=== PATIENT | female | born 1985 | race Caucasian/White ===

== ENCOUNTER 2016-04-07 12:29 | Outpatient (CLI) | payer MEDICAID ==
[2016-04-07 13:40] LABS: APPEARANCE,URINE SLIGHTLY-CLOUDY; BILIRUBIN,URINE NEGATIVE (NEGATIVE); GLUCOSE, URINE NEGATIVE (NEGATIVE); KETONES,URINE NEGATIVE (NEGATIVE); LEUKOCYTE ESTERASE,URINE NEGATIVE (NEGATIVE); NITRITE,URINE NEGATIVE (NEGATIVE); PROTEIN,URINE NEGATIVE (NEGATIVE); URINE SPECIFIC GRAVITY 1.025; UROBILINOGEN,URINE NEGATIVE mg/dL (<2.0)
[2016-04-07 13:54] LABS: URINE BARBITURATES SCREEN NEGATIVE; URINE METHADONE SCREEN NEGATIVE; URINE PHENCYCLIDINE SCREEN NEGATIVE
--- NOTE | 2016-04-07 14:16 | Non Stress Test Report ---
Non Stress Test Datetime Report Generated by CPN: 04/07/2016 14:15 DEMOGRAPHIC Test Number: 1 EGA NST: 34.6 INDICATION Indication for Study: Ordered by Provider MONITORING Monitor Explained: Monitor Explained; Test Explained; Patient Verbalized Understanding Time on Monitor: 04/07/2016 12:52 Time off Monitor: 04/07/2016 14:03 NST Duration: 71 NST INTERVENTIONS NST Interventions: PO Hydration; Reposition Patient Physician Notified NST: Dr. Diaz BABY A: [id number] BABY A Movement : Present Contraction Frequency : Irritability FHR Baseline : 135 Accelerations : 15X15 Decelerations : None Variability : Moderate 6-25bpm NST Review: Meets Criteria for Reactive NST NST Review and Verified By : Leonarda Camp RNC NST Results: Reactive NST REPORT Report Trigger: Send Report
--- NOTE | 2016-04-12 09:59 | Antepartum Discharge Summary ---
Antepartum DC Datetime Report Generated by CPN: 04/12/2016 09:59 DIET/ACTIVITY/RESTRICTIONS Diet: Regular (04/07/2016 14:09:Sruthi Vitrano, RN) Activity: Normal Activity (04/07/2016 14:09:Sruthi Vitrano, RN) TEACHING/INSTRUCTIONS/REFERRALS Instructions Given To: Patient, Support (04/07/2016 14:09:Sruthi Vitrano, RN) Instructions Understood: Patient Verbalized Understanding; Support Person Verbalized Understanding (04/07/2016 14:09:Sruthi Jiang RN) Referrals: None (04/07/2016 14:09:Sruthi Jiang RN) Educational Materials- Other: Kick Counts, Dehydration, Round Ligament Pain (04/07/2016 14:09:Sruthi Jiang RN) DISCHARGE INFORMATION Discharged AMA: No (04/07/2016 14:09:Sruthi Jiang RN) Discharge Date/Time: 04/07/2016 14:20 (04/07/2016 14:09:Sruthi Jiang RN) Discharged To: Home (04/07/2016 14:09:Sruthi Jiang RN) Discharge Provider Name: Dr. Diaz (04/07/2016 14:09:Sruthi Jiang RN) Accompanied By: Support Persons (04/07/2016 14:09:Sruthi Jiang RN) Discharge Method: Ambulatory (04/07/2016 14:09:Sruthi Jiang RN) Condition: Stable (04/07/2016 14:09:Sruthi Jiang RN) FOLLOW UP INFORMATION Follow Up With: [facility] (04/07/2016 14:09:Sruthi Jiang RN) Follow Up On: As Scheduled (04/07/2016 14:09:Sruthi Jiang RN)
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
--- NOTE | 2016-04-12 10:00 | L&D Flow Sheet ---
LD Flowsheet Datetime Report Generated by CPN: 04/12/2016 10:00 Datetime: 04/07/2016 14:20 Patient Care Comments: Pt ambulating off unit in stable condition with support (Sruthi Jiang, RN) Datetime: 04/07/2016 14:18 Teaching Comments: Reviewed with pt positive THC result. Reviewed with pt smoking cessation and negative effects of marijuana on . Reviewed appropriate management of nausea in and encouraged pt to f/u with provider for further needs. Pt verbalized understanding. (Sruthi Vitrano, RN) Datetime: 04/07/2016 14:15 Communication Communication Comments: Positive THC; Dr. Diaz aware continue current POC. (Sruthi Vitrano, RN) Datetime: 04/07/2016 14:05 Teaching Instructional Method: Verbal; Written; Patient Instructed; Family/Support Person Instructed; Verbalized Understanding (Sruthi Jiang RN) Teaching Comments: Reviewed and signed kick counts, dehydration and round ligament pain care notes. Reviewed comfort measures for round ligament pain. Pt encouraged to f/u with provider for further needs. Encouraged to return for decreased FM, suspected SROM, regular contractions, bleeding like a period. Pt and support verbalize understanding and deny further needs. (Sruthi Jiang RN) Datetime: 04/07/2016 14:02 Comments: Monitors d/c (Sruthi Jiang RN) Datetime: 04/07/2016 14:01 Patient Care Comments: PO fluids complete (Sruthi Jiang RN) Datetime: 04/07/2016 14:00 Uterine Activity Monitor Mode: External; Palpation (Sruthi Vitrano, RN) Frequency (min): Irritability (Sruthi Vitrano, RN) Quality: Mild (Sruthi Vitrano, RN) Pattern: Normal: <= 5 Contractions in 10 Minutes (Sruthi Vitrano, RN) Resting Tone (Palpate): Relaxed (Sruthi Vitrano, RN) Assessment A Monitor Mode: External US (Sruthi Vitrano, RN) FHR Baseline Rate : 135 (Sruthi Vitrano, RN) Variability: Moderate 6-25 bpm (Sruthi Vitrano, RN) Accelerations: 15X15 (Sruthi Vitrano, RN) Decelerations: None (Sruthi Vitrano, RN) Datetime: 04/07/2016 13:58 Monitor Interventions for FHR: Ultrasound Adjusted (Sruthi Vitrano, RN) Comments: Tracing maternal HR d/t pt position (Sruthi Vitrano, RN) Datetime: 04/07/2016 13:54 NBP Sys/Umu/Mean (mmHg): 129 (QS system process) : 80 (QS system process) : 97 (QS system process) Pulse: 86 (QS system process) Respirations: 15 (Sruthi Vitrano, RN) LaborFlag: Antepartum (QS system process) Datetime: 04/07/2016 13:47 Patient Care Patient Position/Activity: Right Tilt; High Fowlers (Sruthi Vitrano, RN) Patient Care Comments: Reviewed provider orders, pt instructed to drink 1000 mL water PO. Pt verbalized understanding. (Sruthi Vitrano, RN) Datetime: 04/07/2016 13:45 Communication Communication Comments: on unit, reviewed strip. Report given to include EGA 34.6, , pt complaints pelvic pain with movement, nausea with coughing/sneezing, denies contractions. Reviewed toco tracing, FHTs, VS, pt history, urine results. Orders to instruct pt to drink 1000 mL water PO, then may d/c pt home with instructions to f/u with provider. Diagnosis round ligament pain and dehydration. (Sruthi Jiang, RN) Datetime: 04/07/2016 13:39 Monitor Interventions for FHR: Ultrasound Adjusted (Sruthi Jiang, RN) Datetime: 04/07/2016 13:30 Uterine Activity Monitor Mode: External; Palpation (Sruthi Vitrano, RN) Frequency (min): Irritability (Sruthi Vitrano, RN) Quality: Mild (Sruthi Vitrano, RN) Pattern: Normal: <= 5 Contractions in 10 Minutes (Sruthi Vitrano, RN) Resting Tone (Palpate): Relaxed (Sruthi Vitrano, RN) Assessment A Monitor Mode: External US (Sruthi Vitrano, RN) FHR Baseline Rate : 145 (Sruthi Vitrano, RN) Variability: Moderate 6-25 bpm (Sruthi Vitrano, RN) Accelerations: 15X15 (Sruthi Vitrano, RN) Decelerations: None (Sruthi Vitrano, RN) Datetime: 04/07/2016 13:23 NBP Sys/Umu/Mean (mmHg): 123 (QS system process) : 83 (QS system process) : 98 (QS system process) Pulse: 98 (QS system process) Respirations: 15 (Sruthi Vitrano, RN) LaborFlag: Antepartum (QS system process) Datetime: 04/07/2016 13:13 Monitor Interventions for FHR: Ultrasound Adjusted (Sruthi Vitrano, RN) Patient Care Patient Position/Activity: Right Lateral (Sruthi Vitrano, RN) Datetime: 04/07/2016 13:12 Comments: Tracing maternal HR d/t pt movement (Sruthi Vitrano, RN) Datetime: 04/07/2016 13:02 Monitor Interventions for FHR: Ultrasound Adjusted (Sruthi Vitrano, RN) Datetime: 04/07/2016 12:53 Vital Signs Stage of : Antepartum (Sruthi Vitrano, RN) NBP Sys/Umu/Mean (mmHg): 111 (QS system process) : 76 (QS system process) : 87 (QS system process) Pulse: 89 (QS system process) Respirations: 15 (Sruthi Vitrano, RN) Pain Pain Scale: 0 (Annotations: Pt denies pain, states sharp pelvic "twinges" and pressure are only when walking.) (Sruthi Vitrano, RN) Pain Presence: None/Denies (Sruthi Vitrano, RN) Pain Type: N/A (Sruthi Vitrano, RN) Vaginal Exam Membrane Status: Intact (Sruthi Vitrano, RN) Vaginal Bleeding: None (Sruthi Vitrano, RN) Maternal Assessment Level of Consciousness: Fully Conscious (Sruthi Vitrano, RN) DTR's/Clonus: DTRs 2+; No Clonus (Sruthi Vitrano, RN) Headache: Denies (Rsuthi Vitrano, RN) Breath Sounds, Left: Clear and Equal (Sruthi Vitrano, RN) Breath Sounds, Right: Clear and Equal (Sruthi Vitrano, RN) Nausea/Vomiting: Denies (Annotations: Denies nausea at this time; states worsens when feels hot or sneezes/coughs.) (Sruthi Vitrano, RN) RUQ Epigastric Pain: Denies (Sruthi Vitrano, RN) LaborFlag: Antepartum (QS system process) Datetime: 04/07/2016 12:51 Patient Care Patient Position/Activity: Left Lateral (Sruthi Vitrano, RN) I/O Interventions: Clear Liquids Given (Sruthi Vitrano, RN) Teaching Instructional Method: Verbal; Patient Instructed; Family/Support Person Instructed; Verbalized Understanding (Sruthi Jiang RN) Plan of Care: Plan of Care Discussed (Sruthi Jiang RN) Unit Routine: [place] to Room; Call Gilli[place]; Bed; Unit Personnel; Monitoring; Safety/Fall Risk Prevention; Bathroom Privileges (Sruthi Jiang RN)
--- NOTE | 2016-04-12 10:00 | L&D Current Admission ---
Current Admit Datetime Report Generated by CPN: 04/12/2016 10:00 ADMISSION INFORMATION Chief Complaint: Nausea; Other (04/07/2016 12:53:Sruthi Apolinar, DOLORES)
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
--- NOTE | 2016-04-12 10:00 | L&D Discharge Summary ---
OB Discharge Summary Datetime Report Generated by CPN: 04/12/2016 10:00 DISCHARGE DIAGNOSIS Diagnosis/Symptoms: Dehydration Diagnoses/Symptoms Other: Dehydration, Round Ligament Pain Reviewed and signed kick counts, dehydration and round ligament pain care notes. Reviewed comfort measures for round ligament pain. Pt encouraged to f/u with provider for further needs. Encouraged to return for decreased FM, suspected SROM, regular contractions, bleeding like a period. Pt and support verbalize understanding and deny further needs. Gestation: 34.6 Number of Babies in Womb: 1 Parity: 2 DIET/ACTIVITY/RESTRICTIONS Diet: Regular Activity: Normal Activity TEACHING/INSTRUCTIONS/REFERRALS Instructions Given To: Patient, Support Instructions Understood: Patient Verbalized Understanding; Support Person Verbalized Understanding Referrals: None Educational Materials- Other: Kick Counts, Dehydration, Round Ligament Pain DISCHARGE INFORMATION Discharged AMA: No Discharge Date/Time: 04/07/2016 14:20 Discharged To: Home Discharge Provider Name: Dr. Diaz Accompanied By: Support Persons Discharge Method: Ambulatory Condition: Stable FOLLOW UP INFORMATION Follow Up With: [facility] Follow Up On: As Scheduled
== END 2016-04-07 14:20 | disposition home or self-care (01) ==
LOC: LC 12:29
PROVIDERS: ATTEND Obstetrics & Gynecology
PROC: 4A1HXCZ Monitoring of Products of Conception, Cardiac Rate, External Approach (ICD-10-PCS; principal; 2016-04-07)
DX: Z34.93 Encounter for supervision of normal pregnancy, unspecified, third trimester (principal); Z3A.34 34 weeks gestation of pregnancy
CPT/HCPCS: 59025; 81001; 80307; G0480 ×2

== ENCOUNTER 2016-05-04 08:06 | Outpatient (CLI) | payer MEDICAID ==
[2016-05-04 09:06] LABS: APPEARANCE,URINE SLIGHTLY-CLOUDY; BILIRUBIN,URINE NEGATIVE (NEGATIVE); GLUCOSE, URINE NEGATIVE (NEGATIVE); KETONES,URINE NEGATIVE (NEGATIVE); LEUKOCYTE ESTERASE,URINE NEGATIVE (NEGATIVE); NITRITE,URINE NEGATIVE (NEGATIVE); PROTEIN,URINE NEGATIVE (NEGATIVE); URINE SPECIFIC GRAVITY 1.016; UROBILINOGEN,URINE NEGATIVE mg/dL (<2.0)
[2016-05-04 09:34] LABS: URINE BARBITURATES SCREEN NEGATIVE; URINE METHADONE SCREEN NEGATIVE; URINE OPIATES LOW NEGATIVE; URINE PHENCYCLIDINE SCREEN NEGATIVE
--- NOTE | 2016-05-04 10:00 | L&D Flow Sheet ---
LD Flowsheet Datetime Report Generated by CPN: 05/04/2016 10:00 Datetime: 05/04/2016 09:07 Assessment A Comments: Monitors removed from abdomen for ambulation x1 hour per order. (Agnes Ephraim, RNC) Datetime: 05/04/2016 08:29 Vital Signs NBP Sys/Umu/Mean (mmHg): 138 (QS system process) : 88 (QS system process) : 106 (QS system process) Pulse: 87 (QS system process) Pain Pain Scale: 3 (Agnes Ye RN) Pain Presence: Intermittent (ZULEIKA Villa) Pain Type: Cramping; Contraction (ZULEIKA Villa) Pain Location: Abdomen; Perineum (Agnes Ye RNBishnu) Maternal Assessment Level of Consciousness: Fully Conscious (Agnes Ephraim, RNC) DTR's/Clonus: DTRs 2+; No Clonus (Agnes Ephraim, RNC) Headache: Denies (Agnes Ephraim, RNC) Breath Sounds, Left: Clear and Equal (Agnes Ephraim, RNC) Breath Sounds, Right: Clear and Equal (Agnes Ephraim, RNC) Nausea/Vomiting: Denies (Agnes Ephraim, RNC) RUQ Epigastric Pain: Denies (Agnes Ephraim, RNC) Teaching Instructional Method: Verbal (Agnes Ephraim, RNC) Plan of Care: Labor (Agnes Ephraim, RNC) Unit Routine: [place] to Room; Call Gilliam; Bed; Monitoring (Agnes Ephraim, RNC) Communication LaborFlag: Antepartum (QS system process)
== END 2016-05-04 10:54 | disposition home or self-care (01) ==
LOC: LC 08:06
PROVIDERS: ATTEND Obstetrics & Gynecology
PROC: 4A1HXCZ Monitoring of Products of Conception, Cardiac Rate, External Approach (ICD-10-PCS; principal; 2016-05-04)
DX: O47.1 False labor at or after 37 completed weeks of gestation (principal); Z3A.38 38 weeks gestation of pregnancy
CPT/HCPCS: 59025; 81005; 80307; G0480 ×2

== ENCOUNTER 2016-05-04 22:10 | Inpatient (IN) | payer MEDICAID ==
[2016-05-04 23:09] LABS: AMNISURE (ROM) NEGATIVE (NEGATIVE)
[2016-05-05] MEDS ORDERED: NALBUPHINE HCL INJ 10 MG/1 ML AMPULE INJ ONE (00:25)
[2016-05-05] MEDS ORDERED: PROMETHAZINE HCL INJ 25 MG/1 ML VIAL IV ONE (00:25)
[2016-05-05] MEDS ORDERED: VANCOMYCIN HCL INJ 1000 MG VIAL IV ONE (00:32)
[2016-05-05] MEDS ORDERED: VANCOMYCIN HCL INJ 1000 MG VIAL ONE (00:39)
[2016-05-05 00:52] LABS: APPEARANCE,URINE SLIGHTLY-CLOUDY; BILIRUBIN,URINE NEGATIVE (NEGATIVE); GLUCOSE, URINE NEGATIVE (NEGATIVE); KETONES,URINE NEGATIVE (NEGATIVE); LEUKOCYTE ESTERASE,URINE NEGATIVE (NEGATIVE); NITRITE,URINE NEGATIVE (NEGATIVE); PROTEIN,URINE 30 mg/dL (NEGATIVE); URINE SPECIFIC GRAVITY 1.031; UROBILINOGEN,URINE NEGATIVE mg/dL (<2.0)
[2016-05-05] MEDS ORDERED: NALBUPHINE HCL INJ 10 MG/1 ML AMPULE ONE (00:52)
[2016-05-05] MEDS ORDERED: PROMETHAZINE HCL INJ 25 MG/1 ML VIAL ONE (00:52)
[2016-05-05] MEDS ORDERED: BUPIVACAINE HCL 0.25 % INJ/PF (2.5 MG/1 ML) 30 ML VIAL INFIL ONE (01:57)
[2016-05-05] MEDS ORDERED: BENZOIN/ALOE VERA/STORAX/TOLU TINCTURE 60 ML TP PRN (01:57)
[2016-05-05] MEDS ORDERED: MISOPROSTOL 0.2 MG TABLET ONE (01:57)
[2016-05-05] MEDS ORDERED: EPHEDRINE SULFATE INJ 50 MG/1 ML AMPULE IV PRN (01:57)
[2016-05-05] MEDS ORDERED: EPHEDRINE SULFATE INJ 50 MG/1 ML AMPULE ONE (01:58)
[2016-05-05] MEDS ORDERED: FENTANYL/BUPIVACAINE/NS/PF 200 MCG/100 ML RTUINJ EPI ONE (01:58)
[2016-05-05] MEDS ORDERED: LIDOCAINE 1% INJ-PF (10 MG/ML) 30 ML SDV ONE (01:58)
[2016-05-05] MEDS ORDERED: BUPIVACAINE HCL 0.25 % INJ/PF (2.5 MG/1 ML) 30 ML VIAL ONE (01:58)
[2016-05-05] MEDS ORDERED: OXYTOCIN/NORMAL SALINE 20 UNIT/1,000 ML RTUINJ ONE (01:58)
[2016-05-05] MEDS: RINGERS SOLUTION,LACTATED 1,000 ML IV PRN ×2 (02:14→02:17)
[2016-05-05 02:16] LABS: ABSOLUTE LYMPHOCYTES (AUTO) 1.1 10^3/uL (0.5-4.7); ABSOLUTE MONOCYTES (AUTO) 0.6 10^3/uL (0.1-1.4); ABSOLUTE NEUT (AUTO) 15.3 10^3/uL (1.7-8.2); BASOPHILS % (AUTO) 0.3 % (0-2); HEMATOCRIT 34.2 % (36.0-47.0); HEMOGLOBIN 11.5 g/dL (12.0-15.5); HGB HCT DIFFERENCE 0.3; LYMPHOCYTES % (AUTO) 6.8 % (13-45); MEAN CORPUSCULAR HEMOGLOBIN 28.8 pg (27.0-33.4); MEAN CORPUSCULAR HGB CONC 33.7 g/dL (32.0-36.0); MEAN CORPUSCULAR VOLUME 85 fl (80-97); MONOCYTES % (AUTO) 3.3 % (3-13); RED BLOOD COUNT 4.01 10^6/uL (3.72-5.28); RED CELL DISTRIBUTION WIDTH 14.3 % (11.5-14.0); SEGMENTED NEUTROPHILS % (AUTO) 89.6 % (42-78)
[2016-05-05 02:21] LABS: URINE BARBITURATES SCREEN NEGATIVE; URINE METHADONE SCREEN NEGATIVE; URINE OPIATES LOW NEGATIVE; URINE PHENCYCLIDINE SCREEN NEGATIVE
[2016-05-05] MEDS: FENTANYL/BUPIVACAINE/NS/PF 100 ML EPI PRN ×2 (03:15→03:18)
--- NOTE | 2016-05-05 06:31 | Delivery Summary ---
Del Sum A-C Datetime Report Generated by CPN: 05/05/2016 06:30 ADMISSION DATA Chief Complaint: Uterine Contractions Indication for Induction: Not Applicable Admission Impression: Term, Intrauterine ; Active Labor; Intact Membranes DELIVERY PERSONNEL Delivery Doctor:: Jae Diaz, DO Labor and Delivery Nurse:: Judi Renner RN Labor and Delivery Nurse:: DOLORES Luna/BILLER: Jillian Rothman CNA MATERNAL INFORMATION Delivery Anesthesia: Epidural Medications After Delivery: Pitocin Bolus-Please Comment; Pitocin Drip 20 Units/1000ml NSS Maternal Complications: None Provider Comments: of viable female infant in ASHLEY position Placenta delievered spontaneous and intact with 3v cord Fundus firm LABOR SUMMARY EDC: 05/13/2016 00:00 No. Babies in Womb: 1 Labor Anesthesia: Epidural LABOR INFORMATION Reason for Induction: Not Applicable Onset of Labor: 05/05/2016 01:00 Complete Dilatation: 05/05/2016 04:04 Group B Beta Strep: Positive Antibiotics # of Doses: 1 Antibiotics Time of Last Dose: 0100 Name of Antibiotic Given: Vancomycin MEMBRANES Membranes Rupture Method: Spontaneous STAGES OF LABOR Stage 1 hr: 3 Stage 1 min: 4 Stage 2 hr: 0 Stage 2 min: 15 Stage 3 hr: 0 Stage 3 min: 5 Total Time in Labor hr: 3 Total Time in Labor min: 24 VAGINAL DELIVERY Episiotomy: None Laceration Type: None BABY A INFORMATION Infant Delivery Date/Time: 05/05/2016 04:19 Method of Delivery: Vaginal Born in Route : No : N/A Forceps: N/A Vacuum Extraction: N/A Shoulder Dystocia : No PRESENTATION/POSITION BABY A Presentation: Cephalic Cephalic Presentation: Vertex Vertex Position: Left Occipital Posterior Breech Presentation: N/A PLACENTA INFORMATION BABY A Placenta Delivery Time : 05/05/2016 04:24 Placenta Method of Delivery: Spontaneous Placenta Status: Delivered SCORES BABY A Heart Rate 1 min: >100 bpm Resp Effort 1 min: Good Cry Reflex Irritability 1 min: Cough or Sneeze or Pulls Away Muscle Tone 1 min: Active Motion Color 1 min: [place], Extremities Blue Resuscitation Effort 1 min: N/A SCORE 1 MIN: 9 Heart Rate 5 min: >100 bpm Resp Effort 5 min: Good Cry Reflex Irritability 5 min: Cough or Sneeze or Pulls Away Muscle Tone 5 min: Active Motion Color 5 min: [place], Extremities Blue Resuscitation Effort 5 min: N/A SCORE 5 MIN: 9 INFANT INFORMATION BABY A Gestational Age at Delivery: 38.6 Gestational Status: Early Term- 37- 38.6 Weeks Outcome : Liveborn Condition : Stable Sex: Female IDENTIFICATION BABY A Verification Date/Time: 05/05/2016 04:42 ID Band Number: [id number] Mother's Name Verified: Yes RN Verifying : B Rashi, RN Additional Verifying Personnel: Jerome Zhang, RN WEIGHT/LENGTH BABY A Infant Birthweight (gm): 3120 Weight (lb): 6 Infant Weight (oz): 14 Infant Length (in): 19.50 Infant Length (cm): 49.53 CORD INFORMATION BABY A No. Cord Vessels: 3 Nuchal Cord : N/A Cord Blood Taken: Yes-For Eval (Mom's Blood Type - or O+) ASSESSMENT BABY A Complications: None Physical Findings at Delivery: Molding of the Head Infant Respirations: Appears Normal Skin to Skin: Yes Skin to Skin Time (min): Baby to nursery with Kandy Madsen RN Storage Consultant/ALS Called : No Care By: Diya Zhang RN Transferred To: [facility] with Mother SIGNATURES Signature: with User ID: [email or web address]
[2016-05-05] MEDS ORDERED: ACETAMINOPHEN WITH CODEINE #3 TABLET PO PRN ×2 (06:59)
[2016-05-05] MEDS ORDERED: DIPH/PERTUSS(ACELL)/TETANUS VAC/PF 0.5 ML SYR (>=10YO) IM PRN (06:59)
[2016-05-05] MEDS ORDERED: DIBUCAINE 1% OINTMENT 28 GM TP PRN (06:59)
[2016-05-05] MEDS ORDERED: BENZOCAINE/MENTHOL AEROSOL SPRAY 56 ML TOP PRN (06:59)
[2016-05-05] MEDS ORDERED: MEASLES,MUMPS&RUBELLA VACC/PF 0.5 ML VIAL SUBCUT PRN (06:59)
[2016-05-05] MEDS ORDERED: ZOLPIDEM TARTRATE 5 MG TABLET PO PRN (06:59)
[2016-05-05] MEDS ORDERED: OXYTOCIN/NORMAL SALINE 1,000 ML IV PRN (06:59)
--- NOTE | 2016-05-05 08:00 | L&D Flow Sheet ---
LD Flowsheet Datetime Report Generated by CPN: 05/05/2016 08:00 Datetime: 05/05/2016 07:12 Stage of : Recovery (Crystal Jud, RN) Strip Reviewed by: CAimee Jud, RN (Crystal Jud, RN) Communication: Report Given to @ DAimee Coelhomanjitgilma, RN (Crystal [place], RN) Notification Reason: Status Update (Crystal [place], RN) Datetime: 05/05/2016 06:45 Stage of : Recovery (Crystal [place], RN) Datetime: 05/05/2016 06:15 Stage of : Recovery (Crystal Jud, RN) Datetime: 05/05/2016 06:14 Stage of : Recovery (Crystal Jud, RN) Datetime: 05/05/2016 06:00 Stage of : Recovery (Crystal Jud, RN) Datetime: 05/05/2016 05:59 Stage of : Recovery (Crystal Jud, RN) Datetime: 05/05/2016 05:56 NBP Sys/Umu/Mean (mmHg): 119 (QS system process) : 69 (QS system process) : 88 (QS system process) Pulse: 70 (QS system process) Datetime: 05/05/2016 05:45 Stage of : Recovery (Crystal Jud, RN) Datetime: 05/05/2016 05:43 NBP Sys/Umu/Mean (mmHg): 126 (QS system process) : 71 (QS system process) : 94 (QS system process) Pulse: 88 (QS system process) Datetime: 05/05/2016 05:30 Stage of : Recovery (Crystal Jud, RN) Datetime: 05/05/2016 05:27 NBP Sys/Umu/Mean (mmHg): 112 (QS system process) : 68 (QS system process) : 84 (QS system process) Pulse: 74 (QS system process) Datetime: 05/05/2016 05:15 Stage of : Recovery (Crystal Jud, RN) Datetime: 05/05/2016 05:11 NBP Sys/Umu/Mean (mmHg): 127 (QS system process) : 77 (QS system process) : 98 (QS system process) Pulse: 86 (QS system process) Datetime: 05/05/2016 05:00 Stage of : Recovery (Crystal Jud, RN) Pain Scale: 1 (Crystal Jud, RN) Pain Presence: Intermittent (Crystal [place], RN) Pain Type: Ache (Crystal Jud, RN) Pain Location: Abdomen (Crystal [place], RN) Pain Goal: 1 (Crystal [place], RN) Pain Relief Measures: Comfort Measures (Crystal Jud, RN) Datetime: 05/05/2016 04:56 NBP Sys/Umu/Mean (mmHg): 133 (QS system process) : 71 (QS system process) : 97 (QS system process) Pulse: 93 (QS system process) Datetime: 05/05/2016 04:45 Stage of : Recovery (Crystal [place], RN) Pain Scale: 1 (Crystal [place], RN) Pain Presence: Intermittent (Crystal [place], RN) Pain Type: Ache (Crystal [place], RN) Pain Location: Abdomen (Crystal [place], RN) Pain Relief Measures: Comfort Measures (Crystal [place], RN) Datetime: 05/05/2016 04:42 NBP Sys/Umu/Mean (mmHg): 129 (QS system process) : 73 (QS system process) : 92 (QS system process) Pulse: 100 (QS system process) Datetime: 05/05/2016 04:28 Stage of : Recovery (Crystal [place], RN) Pain Scale: 0 (Crystal [place], RN) Pain Presence: None/Denies (Crystal [place], RN) Pain Type: N/A (Crystal Jud, RN) Pain Goal: 1 (Crystal [place], RN) Pain Relief Measures: Comfort Measures (Crystal Jud, RN) Datetime: 05/05/2016 04:27 NBP Sys/Umu/Mean (mmHg): 127 (QS system process) : 74 (QS system process) : 92 (QS system process) Pulse: 105 (QS system process) LaborFlag: Labor (QS system process) Datetime: 05/05/2016 04:24 Stage of : Labor (Crystal Jud, RN) Stage 2 Comments: spontaneous delivery of placenta. (Crystal Jud, RN) Datetime: 05/05/2016 04:19 Stage of : Labor (Crystal [place], RN) Stage 2 Comments: vaginal delivery of a viable Baby girl. (Crystal [place], RN) Datetime: 05/05/2016 04:16 Monitor Mode: External US (Crystal [place], RN) FHR Baseline Rate : 120 (Crystal Jud, RN) Variability: Moderate 6-25 bpm (Crystal Jud, RN) Accelerations: None (Crystal Jud, RN) Decelerations: None (Crystal [place], RN) Pushing: Coached on Pushing; Urge to Push (Crystal [place], RN) Pushing Position: Pushing with Contractions (Crystal Jud, RN) Pushing Progress: Descent with Pushing; Perineal Bulging; with Pushing (Crystal Jud, RN) Datetime: 05/05/2016 04:13 NBP Sys/Umu/Mean (mmHg): 118 (QS system process) : 77 (QS system process) : 94 (QS system process) Pulse: 134 (QS system process) LaborFlag: Labor (QS system process) Datetime: 05/05/2016 04:05 Temperature (F): 100.0 (Crystal [place], RN) Temperature (C): 37.8 (QS system process) LaborFlag: Labor (QS system process) Datetime: 05/05/2016 04:04 Communication: RN at Bedside; RN Reviewed Strip (Crystal Jud, RN) Datetime: 05/05/2016 04:02 Instructional Method: Verbal (Crystal Jud, RN) Plan of Care: Labor (Crystal Jud, RN) Pushing: Urge to Push (Crystal Jud, RN) Datetime: 05/05/2016 04:00 NBP Sys/Umu/Mean (mmHg): 117 (QS system process) : 62 (QS system process) : 83 (QS system process) Pulse: 83 (QS system process) Monitor Mode: External; Palpation (Crystal [place], RN) Frequency (min): 3-4 (Crystal Jud, RN) Quality: Strong (Crystal Jud, RN) Duration (sec): 70-100 (Crystal Jud, RN) Duration Criteria: Less than Two 120 Second Contractions (Crystal [place], RN) Resting Tone (Palpate): Relaxed (Crystal Jud, RN) Monitor Mode: External US (Crystal Jud, RN) FHR Baseline Rate : 120 (Crystal [place], RN) Variability: Moderate 6-25 bpm (Crystal Jud, RN) Accelerations: 15X15 (Crystal Jud, RN) Decelerations: Variable (Crystal Jud, RN) Patient Position/Activity: Right Lateral; Peanut Ball (Crystal Jud, RN) LaborFlag: Labor (QS system process) Datetime: 05/05/2016 03:56 Dilatation (cm): 9.5 (Raysa Markham, RN) Effacement (%): 90 (Raysa Markham, RN) Station: 0 (Raysa Markham, RN) Exam by: Kasie Markahm RN (Raysa Markham, RN) Vaginal Bleeding: Normal Show (Raysa Markham, RN) Cervix, Consistency: Soft (Raysa Markham, RN) Cervix, Position: Midposition (Raysa Markham, RN) Datetime: 05/05/2016 03:55 Stage of : Labor (Crystal [place], RN) Dilatation (cm): 10.0 (Annotations: Anterior lip) (Crystal [place], RN) Effacement (%): 100 (Crystal [place], RN) Station: 0 (Crystal [place], RN) Exam by: Rica Renner RN (Crystal [place], RN) Datetime: 05/05/2016 03:45 Monitor Mode: External; Palpation (Crystal Jud, RN) Frequency (min): 3.5-4 (Crystal [place], RN) Quality: Strong (Crystal [place], RN) Duration (sec): 100-110 (Crystal Jud, RN) Duration Criteria: Less than Two 120 Second Contractions (Crystal [place], RN) Resting Tone (Palpate): Relaxed (Crystal Jud, RN) Monitor Mode: External US (Crystal Greensboro RN) FHR Baseline Rate : 120 (Crystal [place], RN) Variability: Moderate 6-25 bpm (Crystal Jud, RN) Accelerations: 15X15 (Crystal Jud, RN) Decelerations: Variable (Crystal [place], RN) Patient Position/Activity: High Fowlers; Tailors (Crystal [place], RN) Datetime: 05/05/2016 03:42 NBP Sys/Umu/Mean (mmHg): 125 (QS system process) : 75 (QS system process) : 91 (QS system process) Pulse: 118 (QS system process) LaborFlag: OB Triage (QS system process) Datetime: 05/05/2016 03:30 Monitor Mode: External; Palpation (Crystal Jud, RN) Frequency (min): 4 (Crystal Jud, RN) Quality: Strong (Crystal Jud, RN) Duration (sec): 60-80 (Crystal [place], RN) Duration Criteria: Less than Two 120 Second Contractions (Crystal Jud, RN) Resting Tone (Palpate): Relaxed (Crystal Jud, RN) Monitor Mode: External US (Crystal Jud, RN) FHR Baseline Rate : 120 (Crystal Jud, RN) Variability: Moderate 6-25 bpm (Crystal Jud, RN) Accelerations: 15X15 (Crystal [place], RN) Decelerations: None (Crystal [place], RN) Pain Presence: None/Denies (Crystal [place], RN) Pain Type: N/A (Crystal Jud, RN) Patient Position/Activity: Left Extreme; Right Lateral; Peanut Ball (Crystal Jud, RN) LaborFlag: OB Triage (QS system process) Datetime: 05/05/2016 03:15 Monitor Mode: External; Palpation (Crystal [place], RN) Frequency (min): 5 (Crystal Jud, RN) Quality: Strong (Crystal Jud, RN) Duration (sec): 60-80 (Crystal Jud, RN) Duration Criteria: Less than Two 120 Second Contractions (Crystal [place], RN) Resting Tone (Palpate): Relaxed (Crystal [place], RN) Monitor Mode: External US (Crystal Jud, RN) FHR Baseline Rate : 120 (Crystal [place], RN) Variability: Moderate 6-25 bpm (Crystal Jud, RN) Accelerations: 15X15 (Crystal Jud, RN) Decelerations: None (Crystal Jud, RN) Patient Position/Activity: Right Lateral; Peanut Ball (Crystal Jud, RN) Datetime: 05/05/2016 03:11 NBP Sys/Umu/Mean (mmHg): 114 (QS system process) : 67 (QS system process) : 85 (QS system process) Pulse: 94 (QS system process) LaborFlag: OB Triage (QS system process) Datetime: 05/05/2016 03:00 Monitor Mode: External; Palpation (Crystal Jud, RN) Frequency (min): 3 (Crystal Jud, RN) Quality: Strong (Crystal Jud, RN) Duration (sec): 80-100 (Crystal [place], RN) Duration Criteria: Less than Two 120 Second Contractions (Crystal Jud, RN) Resting Tone (Palpate): Relaxed (Crystal Jud, RN) Monitor Mode: External US (Crystal [place], RN) Monitor Interventions for FHR: Ultrasound Adjusted (Crystal Jud, RN) FHR Baseline Rate : 120 (Crystal Jud, RN) Variability: Moderate 6-25 bpm (Crystal [place], RN) Accelerations: None (Crystal [place], RN) Decelerations: None (Crystal Jud, RN) Patient Position/Activity: Right Lateral; Peanut Ball (Judi Renner RN) Datetime: 05/05/2016 02:56 NBP Sys/Umu/Mean (mmHg): 121 (QS system process) : 74 (QS system process) : 89 (QS system process) Pulse: 110 (QS system process) Dilatation (cm): 9.0 (Judi Renner RN) Effacement (%): 90 (Judi Renner RN) Station: -1 (Judi Renner RN) Exam by: Rica Renner RN (Judi Renner RN) Vaginal Bleeding: Normal Show (Judi Renner RN) Cervix, Consistency: Firm (Judi Renner RN) Cervix, Position: Anterior (Judi Renner RN) LaborFlag: OB Triage (QS system process) Datetime: 05/05/2016 02:55 NBP Sys/Umu/Mean (mmHg): 116 (QS system process) : 73 (QS system process) : 89 (QS system process) Pulse: 82 (QS system process) I/O Interventions: Brar Cath Inserted (Crystal Jud, RN) LaborFlag: OB Triage (QS system process) Datetime: 05/05/2016 02:54 NBP Sys/Umu/Mean (mmHg): 115 (QS system process) : 71 (QS system process) : 86 (QS system process) Pulse: 85 (QS system process) LaborFlag: OB Triage (QS system process) Datetime: 05/05/2016 02:53 NBP Sys/Umu/Mean (mmHg): 114 (QS system process) : 72 (QS system process) : 87 (QS system process) Pulse: 74 (QS system process) LaborFlag: OB Triage (QS system process) Datetime: 05/05/2016 02:52 NBP Sys/Umu/Mean (mmHg): 128 (QS system process) : 89 (QS system process) : 97 (QS system process) Pulse: 100 (QS system process) LaborFlag: OB Triage (QS system process) Datetime: 05/05/2016 02:50 NBP Sys/Umu/Mean (mmHg): 117 (QS system process) : 77 (QS system process) : 91 (QS system process) Pulse: 91 (QS system process) LaborFlag: OB Triage (QS system process) Datetime: 05/05/2016 02:49 NBP Sys/Umu/Mean (mmHg): 117 (QS system process) : 73 (QS system process) : 89 (QS system process) Pulse: 78 (QS system process) LaborFlag: OB Triage (QS system process) Datetime: 05/05/2016 02:46 NBP Sys/Umu/Mean (mmHg): 132 (QS system process) : 75 (QS system process) : 98 (QS system process) Pulse: 101 (QS system process) LaborFlag: OB Triage (QS system process) Datetime: 05/05/2016 02:45 NBP Sys/Umu/Mean (mmHg): 140 (QS system process) : 81 (QS system process) : 105 (QS system process) Pulse: 79 (QS system process) LaborFlag: OB Triage (QS system process) Datetime: 05/05/2016 02:44 NBP Sys/Umu/Mean (mmHg): 160 (QS system process) : 95 (QS system process) : 120 (QS system process) Pulse: 86 (QS system process) Pulse: 96 (QS system process) SpO2 (%): 100 (QS system process) LaborFlag: OB Triage (QS system process) Datetime: 05/05/2016 02:43 Epidural Procedure: Cath Placed (Crystal Jud, RN) Datetime: 05/05/2016 02:42 NBP Sys/Umu/Mean (mmHg): 182 (QS system process) : 99 (QS system process) : 130 (QS system process) Pulse: 81 (QS system process) Epidural Procedure: Test Dose (Crystal Jud, RN) LaborFlag: OB Triage (QS system process) Datetime: 05/05/2016 02:39 Pulse: 84 (QS system process) SpO2 (%): 100 (QS system process) LaborFlag: OB Triage (QS system process) Datetime: 05/05/2016 02:35 Procedure Verify: Correct Patient Identity; Correct Side and Site are Marked; Accurate Procedure Consent Form; Agreement on Procedure to be Done; Correct Patient Position; Relevant Images and Results are Properly Labeled and Displayed; Addressed Need to Administer Antibiotics or Fluids for Irrigation; Safety Precautions Based on Patient History or Medication Use (Judi Renner RN) Anesthesia Plans: Epidural (Judi Renner RN) Epidural Positioning: Sitting (Judi Renner RN) Anesthesia Comments: Dr Hughes at bedside for epidural procedure (Judi Renner RN) Datetime: 05/05/2016 02:34 Pulse: 109 (QS system process) SpO2 (%): 100 (QS system process) LaborFlag: OB Triage (QS system process) Datetime: 05/05/2016 02:30 Monitor Mode: External; Palpation (Crystal [place], RN) Frequency (min): 4 (Crystal [place], RN) Quality: Moderate to Strong (Crystal Jud, RN) Duration (sec): 60 (Crystal Jud, RN) Duration Criteria: Less than Two 120 Second Contractions (Crystal Jud, RN) Resting Tone (Palpate): Relaxed (Crystal [place], RN) Monitor Mode: External US (Crystal [place], RN) FHR Baseline Rate : 120 (Crystal Jud, RN) Variability: Moderate 6-25 bpm (Crystal Jud, RN) Accelerations: 15X15 (Crystal [place], RN) Decelerations: None (Crystal [place], RN) Datetime: 05/05/2016 02:25 Procedure Verify: Agreement on Procedure to be Done; Addressed Need to Administer Antibiotics or Fluids for Irrigation (Crystal Jud, RN) Anesthesia Plans: Epidural (Crystal [place], RN) Datetime: 05/05/2016 02:23 Comfort Measures: Anesthesia Notified (Crystal [place], RN) Datetime: 05/05/2016 02:17 IV/Blood Work: New IV Bag Hung (Crystal Jud, RN) Datetime: 05/05/2016 02:00 Monitor Mode: External; Palpation (Crystal Jud, RN) Frequency (min): 4-5 (Crystal Jud, RN) Quality: Moderate to Strong (Crystal Jud, RN) Duration (sec): 60 (Crystal [place], RN) Duration Criteria: Less than Two 120 Second Contractions (Crystal Jud, RN) Resting Tone (Palpate): Relaxed (Crystal Jud, RN) Monitor Mode: External US (Crystal Jud, RN) FHR Baseline Rate : 120 (Crystal Jud, RN) Variability: Moderate 6-25 bpm (Crystal Jud, RN) Accelerations: 15X15 (Crystal [place], RN) Decelerations: None (Crystal [place], RN) Patient Position/Activity: Right Lateral; Semi-Fowlers (Crystal [place], RN) Datetime: 05/05/2016 01:50 Dilatation (cm): 8.0 (Crystal Jud, RN) Effacement (%): 80 (Crystal Jud, RN) Station: -1 (Crystal [place], RN) Exam by: Rica Renner RN (Crystal [place], RN) Datetime: 05/05/2016 01:30 Monitor Mode: External; Palpation (Crystal Jud, RN) Frequency (min): 4.5 (Crystal [place], RN) Quality: Moderate (Crystal Jud, RN) Duration (sec): 60 (Crystal Jud, RN) Duration Criteria: Less than Two 120 Second Contractions (Crystal Jud, RN) Resting Tone (Palpate): Relaxed (Crystal [place], RN) Monitor Mode: External US (Crystal [place], RN) FHR Baseline Rate : 135 (Crystal Jud, RN) Variability: Moderate 6-25 bpm (Crystal [place], RN) Accelerations: None (Crystal Jud, RN) Decelerations: None (Crystal [place], RN) Patient Position/Activity: Right Lateral; Semi-Fowlers (Crystal [place], RN) Datetime: 05/05/2016 01:02 Analgesics/Sedatives: Nubain (mg) @ 10 (Crystal Jud, RN) Datetime: 05/05/2016 01:01 Antiemetics/Antacids: Phenergan IV (mg) @ 12.5 (Crystal Jud, RN) Datetime: 05/05/2016 01:00 Monitor Mode: External; Palpation (Crystal Jud, RN) Frequency (min): 4-6 (Crystal [place], RN) Quality: Moderate to Strong (Crystal [place], RN) Duration (sec): 60-70 (Crystal Jud, RN) Duration Criteria: Less than Two 120 Second Contractions (Crystal Jud, RN) Resting Tone (Palpate): Relaxed (Crystal [place], RN) Monitor Mode: Internal Scalp Electrode (Crystal Jud, RN) FHR Baseline Rate : 120 (Crystal [place], RN) Variability: Moderate 6-25 bpm (Crystal Jud, RN) Accelerations: 15X15 (Crystal Jud, RN) Decelerations: None (Crystal Jud, RN) Patient Position/Activity: Right Lateral; Semi-Fowlers (Crystal [place], RN) Datetime: 05/05/2016 00:58 Antibiotics: Other Antibiotic @ Vancomycin 1G (Judi Renner RN) Datetime: 05/05/2016 00:32 IV/Blood Work: IV Started; IV Bolus Started (Anju Zhang RN) Procedures: Consents Signed (Judi Renner RN) Patient Care Comments: 18 g IV left forearm tolerated well (Anju Zhang RN) Datetime: 05/05/2016 00:20 Stage of : OB Triage (Judi Renner RN) Communication: RN at Bedside; RN Reviewed Strip; Provider Orders Received (Judi Renner RN) Provider Notified (Name): Received orders from Dr. Diaz to give pt IV fluids and after a reactive NST, IV nubain 10 mg, _ phenergan 12.5 IV. Pt reports nausea with allergy, phenergan given to help with nausea and side effects. (Judi Renner RN) Datetime: 05/05/2016 00:14 Stage of : OB Triage (Judi Renner RN) Monitor Mode: Palpation (Judi Renner, DOLORES) Frequency (min): 3-6 (Judi Renner, RN) Quality: Moderate to Strong (Judi Renner, RN) Duration (sec): 60 (Judi Renner, DOLORES) Duration Criteria: Less than Two 120 Second Contractions (Judi Renner, RN) Resting Tone (Palpate): Relaxed (Judi Rnener RN) Contraction Comments: PT off of monitor sitting on birthing ball in room. Contractions assessed with palpation by RN. (Judi Renner, DOLORES) Pain Scale: 5 (Judi Renner, RN) Pain Presence: Intermittent (Judi Renner, RN) Pain Type: Sharp; Contraction (Judi Renner, RN) Pain Location: Perineum (Judi Renner, RN) Pain Goal: 1 (Judi Renner RN) Pain Relief Measures: Comfort Measures (Judi Renner, RN) Pain Coping: Requesting Pain Medication or Epidural; Crying; Writhing (Judi Renner, DOLORES) LaborFlag: OB Triage (QS system process) Datetime: 05/04/2016 23:51 Stage of : OB Triage (Judi Renner RN) Dilatation (cm): 3.0 (Judi Renner RN) Effacement (%): 80 (Judi Renner RN) Station: -2 (Judi Renner RN) Exam by: Rica Renner RN (Judi Renner RN) Maternal Comments: Educated pt on labor process and VE. Offered pt to continue walking or to sit on the birthing ball. (Judi Renner RN) Datetime: 05/04/2016 23:21 Level of Consciousness: Fully Conscious (Judi Renner RN) Maternal Comments: Reactive NST, Pt taken off of the monitor to ambulate. (Judi Renner RN) Datetime: 05/04/2016 23:15 Monitor Mode: External; Palpation (Judi Renner RN) Frequency (min): 2 (Judi Renner RN) Quality: Moderate (Judi Renner RN) Duration (sec): 40-90 (Crystal Jud, RN) Duration Criteria: Less than Two 120 Second Contractions (Crystal Jud, RN) Resting Tone (Palpate): Relaxed (Crystal [place], RN) Monitor Mode: External US (Crystal [place], RN) FHR Baseline Rate : 125 (Crystal Jud, RN) Variability: Moderate 6-25 bpm (Crystal Jud, RN) Accelerations: 15X15 (Crystal [place], RN) Decelerations: None (Crystal [place], RN) Datetime: 05/04/2016 23:10 Communication Comments: Report to Rica Renner RN; care relinquished (Sruthi Vitrano, RN) Datetime: 05/04/2016 23:05 NBP Sys/Umu/Mean (mmHg): 122 (QS system process) : 81 (QS system process) : 99 (QS system process) Pulse: 88 (QS system process) Respirations: 16 (Sruthi Vitrano, RN) LaborFlag: Antepartum (QS system process) Datetime: 05/04/2016 23:00 Monitor Mode: External; Palpation (Sruthi Vitrano, RN) Frequency (min): 1-3 (Sruthi Vitrano, RN) Quality: Mild/Moderate (Sruthi Vitrano, RN) Duration (sec): 50-80 (Sruthi Vitrano, RN) Duration Criteria: Less than Two 120 Second Contractions (Sruthi Vitrano, RN) Pattern: Normal: <= 5 Contractions in 10 Minutes (Sruthi Vitrano, RN) Resting Tone (Palpate): Relaxed (Sruthi Vitrano, RN) Monitor Mode: External US (Sruthi Vitrano, RN) FHR Baseline Rate : 135 (Sruthi Vitrano, RN) Variability: Moderate 6-25 bpm (Sruthi Vitrano, RN) Accelerations: 15X15 (Sruthi Vitrano, RN) Decelerations: None (Sruthi Vitrano, RN) Datetime: 05/04/2016 22:52 Monitor Interventions for UA: [place] Adjusted (Sruthi Vitrano, RN) Datetime: 05/04/2016 22:38 Frequency (min): Unsure (Sruthi Vitrano, RN) Pain Scale: 5 (Sruthi Vitrano, RN) Pain Presence: Intermittent (Sruthi Vitrano, RN) Pain Type: Contraction (Sruthi Vitrano, RN) Pain Location: Abdomen (Sruthi Vitrano, RN) Pain Relief Measures: Comfort Measures (Sruthi Vitrano, RN) Pain Coping: Breathing Through Contractions (Sruthi Vitrano, RN) Vaginal Bleeding: None (Sruthi Vitrano, RN) Level of Consciousness: Fully Conscious (Sruthi Vitrano, RN) DTR's/Clonus: DTRs 2+; No Clonus (Sruthi Vitrano, RN) Headache: Denies (Sruthi Vitrano, RN) Breath Sounds, Left: Clear and Equal (Sruthi Vitrano, RN) Breath Sounds, Right: Clear and Equal (Sruthi Vitrano, RN) Nausea/Vomiting: Denies (Sruthi Vitrano, RN) LaborFlag: Antepartum (QS system process) Datetime: 05/04/2016 22:37 Dilatation (cm): 3.0 (Sruthi Vitrano, RN) Effacement (%): 80 (Sruthi Jiang RN) Station: -2 (Sruthi Jiang RN) Exam by: Asiya Jiang RN (Sruthi Jiang RN) Datetime: 05/04/2016 22:35 NBP Sys/Umu/Mean (mmHg): 131 (QS system process) : 81 (QS system process) : 100 (QS system process) Pulse: 78 (QS system process) Respirations: 16 (Sruthi Jiang RN) LaborFlag: Antepartum (QS system process) Datetime: 05/04/2016 22:34 Patient Position/Activity: Right Lateral (Sruthi Jiang RN) I/O Interventions: Clear Liquids Given (Sruthi Jiang RN) Instructional Method: Verbal; Patient Instructed; Family/Support Person Instructed; Verbalized Understanding (Sruthi Jiang RN) Plan of Care: Plan of Care Discussed (Sruthi Jiang RN) Unit Routine: [place] [employer] to Room; Call [place]; Bed; Unit Personnel; Monitoring; Safety/Fall Risk Prevention; Bathroom Privileges (Sruthi Jiang RN)
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
[2016-05-05] MEDS: FERROUS SULFATE 325 MG TABLET PO SCH ×2 (09:25→18:05)
[2016-05-05] MEDS: PRENATAL VITAMIN W-O CA NO5/FE FUMARATE/FA CAPSULE PO SCH (09:25)
[2016-05-05] MEDS: SENNOSIDES/DOCUSATE 8.6-50 MG 1 EACH TABLET PO SCH (09:25)
[2016-05-05] MEDS: DOCUSATE SODIUM 100 MG CAPSULE PO SCH ×2 (09:25→18:05)
[2016-05-05] MEDS: IBUPROFEN 800 MG TABLET PO SCH ×2 (14:41→21:26)
--- NOTE | 2016-05-05 19:00 | L&D Flow Sheet ---
LD Flowsheet Datetime Report Generated by CPN: 05/05/2016 19:00 Datetime: 05/05/2016 07:12 Stage of : Recovery (Judi Renner RN) Strip Reviewed by: Rica Renner RN (Judi Renner RN) Communication: Report Given to @ Galindo Montaño RN (Judi Renner RN) Notification Reason: Status Update (Judi Renner RN)
[2016-05-06] MEDS ORDERED: MAG HYDROX/AL HYDROX/SIMETH SUSP 30 ML UDCUP ONE (05:28)
[2016-05-06] MEDS: IBUPROFEN 800 MG TABLET PO SCH ×3 (05:33→21:53)
[2016-05-06] MEDS ORDERED: MAG HYDROX/AL HYDROX/SIMETH SUSP 30 ML UDCUP PO PRN (05:50)
--- NOTE | 2016-05-06 06:01 | L&D Current Admission ---
Current Admit Datetime Report Generated by CPN: 05/06/2016 06:00 ADMISSION INFORMATION Current Admit Date/Time: 05/05/2016 01:52 (05/04/2016 22:38:Judi Renner RN) Reason for Admission: Onset of Labor (05/04/2016 22:38:Judi Renner RN) Chief Complaint: Contractions; Suspected Rupture of Membranes (05/04/2016 22:38:Sruthi Jiang RN) EGA per Dates: 38.6 (05/04/2016 22:38:QS system process) Method of Arrival: Wheelchair (05/04/2016 22:38:Judi Renner RN) Admitted From: Antepartum Unit (05/04/2016 22:38:Judi Renner RN) Reason for Induction: Not Applicable (05/04/2016 22:38:Judi Renner RN) Records Available: Yes (05/04/2016 22:38:Judi Renner RN) General Admission Information: Reviewed (05/04/2016 22:38:Judi Renner RN) BELONGINGS/ADVANCED DIRECTIVES Valuables/Personal Effects: Cell Phone (05/04/2016 22:38:Judi Renner RN) Disposition of Belongings: Kept with Patient (05/04/2016 22:38:Judi Renner RN) Advance Direct for Healthcare: No, and Wants No Information (05/04/2016 22:38:Judi Renner RN) Durable Power of [employer] Crew Boss: No (05/04/2016 22:38:Judi Renner RN) Living Will: No (05/04/2016 22:38:Judi Renner RN) Organ Donor: Yes (05/04/2016 22:38:Judi Renner RN) Pt Rights Information Given: Yes (05/04/2016 22:38:Judi Renner RN) Pt Understands Pt Rights: N/A (05/04/2016 22:38:Judi Renner RN) LEARNING ASSESSMENT Knowledge Level: Understands L_D Process; Understands Care Activities; Had Pre-Hospital Education; Understands Diagnosis (05/04/2016 22:38:Judi Renner RN) Barriers to Learning: None (05/04/2016 22:38:Judi Renner RN) Learning Readiness: Motivated (05/04/2016 22:38:Judi Renner RN) Learns Best By: 1 to 1 Instruction (05/04/2016 22:38:Judi Renner RN) Learning Needs: Labor and Delivery Process; Pain Management; Symptoms to Report; Treatment Plan; Medication; Diagnosis; Nutrition; Equipment; Care (05/04/2016 22:38:Judi Renner RN) DOMESTIC VIOLANCE SCREENING Dom Viol Threatened/Hurt: No (05/04/2016 22:38:Judi Renner RN) Hx of Abuse/Neglect past 2yrs: No (05/04/2016 22:38:Judi Renner RN) Feel Unsafe Going Home: No (05/04/2016 22:38:Judi Renner RN) Addt'l Observ Indicating Abuse: No (05/04/2016 22:38:Judi Renner RN) Reason Unable to Complete Screen: N/A, Screen Completed (05/04/2016 22:38:Judi Renner RN) Considered Personal Harm/Suicide: No (05/04/2016 22:38:Judi Renner RN) NUTRITIONAL/FUNCTIONAL SCREENING Problem with Appetite >5 Days: No (05/04/2016 22:38:Judi Renner RN) Chew/Swallow Difficulties: No (05/04/2016 22:38:Judi Renner RN) Inappropriate Wt Gain/Loss: No (05/04/2016 22:38:Judi Renner RN) Presence Skin Breakdown/Ulcer: No (05/04/2016 22:38:Judi Renner RN) Special Diet: No (05/04/2016 22:38:Judi Renner RN) Pt Requests Education Specialist Visit: No (05/04/2016 22:38:Judi Renner RN) Hx of Any of the Following?: N/A (05/04/2016 22:38:Judi Renner RN) New Diagnosis of: N/A (05/04/2016 22:38:Judi Renner RN) Requires Assist w/Ambulation: No (05/04/2016 22:38:Judi Renner RN) Uses Assist Device to Ambulate: No (05/04/2016 22:38:Judi Renner RN) Pt Requires Help w/ADL's: No (05/04/2016 22:38:Judi Renner RN)
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
--- NOTE | 2016-05-06 06:15 | L&D Care Plan ---
LD CARE PLANS Datetime Report Generated by CPN: 05/06/2016 06:15 Datetime: 05/05/2016 02:01 Pain State: Actual (Mayte Collier RN) Related To: Labor and Delivery Process (Mayte Collier RN) Goal(s): Patients Pain will be Assessed and Managed; Patient will Verbalize Adequate Relief of Pain or the Ability to [place] with Current Pain (Mayte Collier RN) Interventions: Assess Pain Severity on Scale of 0 (None) to 5 (Severe); Assess Type, Location and Intensity of Pain Each Time Client Reports Discomfort and Notify Provider if Unusal Pain Develops; Encourage Proper Breathing and Relaxation Techniques; Offer Alternatives Such as Repositioning, Calm Environment, Massages, Diversional Activities, Ice Pack, Splinting, and Ambulation; Administer Analgesics as Ordered; Assist with Epidural Placement as Appropriate; Evaluate Therapeutic Effectiveness of Medication and Treatments (Mayte Collier RN) Outcome: Patient will Report Absence or Relief of Pain Consistent with Established Pain Goal (Mayte Collier RN) Outcome: Patient will have a Decrease in Signs and Symptoms of Discomfort (Mayte Collier RN) Outcome: Pain will be Controlled During Procedures (Mayte Collier RN) Anxiety State: Risk For (Mayte Collier RN) Related To: Labor and Delivery Process; Perceived or Actual Threat to ; Fear of Unknown; Situational Crisis (Mayte Collier RN) Goal(s): Patient will have Decreased Anxiety and be able to Function at Acceptable Levels (Mayte Collier RN) Interventions: Assess Verbal and Nonverbal Behavioral Indicators of Anxiety; Assist Patient to Identify and Verbalize Symptoms of Anxiety; Identify and Demonstrate Techniques to Control Anxiety; Assist Patient with Coping Mechanisms to Manage Anxiety; Provide Theraputic Touch for the Patient; Explain to Patient, Using a Calm Reassuring Approach and Nonmedical Terms, All Activities, Procedures, and Concerns; Instruct Patient and Family about Post Discharge Care, Limitations, Symptoms to Report and Resources Available (Mayte Collier RN) Outcome: Patient will Identify, Verbalize and Demonstrate Techniques to Control Anxiety (Mayte Collier RN) Outcome: Patient's Posture, Facial Expressions, Gestures and Activity Level will Reflect Decreased Anxiety (Mayte Collier RN) Outcome: Patient will Verbalize a Sense of Control and/or Acceptance of the Situation (Mayte Collier RN) Outcome: Patient will Identify and Utilize Support Person (Matye Collier RN) Knowledge Deficit State: Risk For (Mayte Collier RN) Related To: Labor and Delivery Process; Impending Alterations in Family Dynamics (Mayte Collier RN) Goal(s): Patient will Accurately Verbalize Understanding of Plan of Care and Treatment; Patient and Family will Accurately Verbalize Understanding of the Disease Process (Mayte Collier RN) Interventions: Assess Motivation and Willingness of Patient/Family to Learn; Assess Preferred Learning Mode: One to One Instruction, Reading, Videos, Group Discussion or Demonstration; Assess Barriers to Learning: Pain, Emotional State, Language Barrier, Cognitive Impairment, Visual or Hearing Deficits; Assess Patient and Family Knowledge of Disease Process, Medications and Treatment; Discuss Therapy and/or Treatment Options, Describe Rationale Behind Management, Therapy and Treatment Recommendations; Instruct Patient and Family on Signs and Symptoms to Report; Instruct Patient and Family on Medication Effects and Side Effects; Provide Appropriate and Timely Education Using Multiple Techniques; Provide Patient and Family with Support Group Information and Resources; Give Clear and Thorough Explanations and Demonstrations (Mayte Collier RN) Outcome: Patient and Family will Verbalize Understanding of Condition, Treatment and Signs and Symptoms to Report (Mayte Collier RN) Outcome: Patient will Identify Perceived Learning Needs and Express Motivation to Learn (Mayte Collier RN) Outcome: Patient will Verbalize Understanding of Desired Content, and/or Performs Desired Skill Prior to Discharge (Mayte Collier RN) Infection State: Risk For (Mayte Collier RN) Related To: Prolonged Labor or Induction (Mayte Collier RN) Goal(s): The Patient will be Free of Infection, Vital Signs Stable and Lab Work within Normal Parameters (Mayte Collier RN) Interventions: Instruct and Reinforce Proper Handwashing, Hygiene, and Care Techniques to Patient and Family; Monitor Vital Signs; Monitor Patient for the Following Signs of Infection: Fever, Abdominal Tenderness, Unusual Discharge; Monitor Aminiotic Fluid, Urine and Lochia for Color and Odor; Observe Wounds, Incisions and Invasive Line Sites for Redness, Drainage and Edema; Assess IV Sites per Hospital Policy; Monitor Lab and Test Results and Notify Provider of Abnormal Findings; Assess Nutritional Status and Promote Good Nutrition (Mayte Collier RN) Outcome: Patient will Remain Free of Infection (Mayte Collier RN) Outcome: Infection will be Recognized Early to Allow for Prompt Treatment (Mayte Collier RN) Outcome: Patient will have Vital Signs Within Expected Range (Mayte Collier RN) Fluid Volume State: Risk For (Mayte Collier RN) Related To: Anesthesia (Mayte Collier RN) Goal(s): Patient will Achieve and Maintain a Balanced Fluid Volume Status; Hemodynamically Stable (Mayte Collier RN) Interventions: Monitor Vital Signs; Auscultate Breath Sounds; Monitor Patient for Skin Turgor, Mucous Membranes, Dry Skin, Weakness, Headaches and Confusion; Provide Oral Fluids as Ordered; Initiate and Maintain Intravenous Fluids as Ordered; Monitor Intake and Output as Indicated Per Patient Status; Accurately Measure Blood Loss; Monitor Lab and Test Results as Obtained and Notify Provider of Abnormal Findings; Monitor Patient's Weight (Mayte Collire RN) Outcome: Patient will have Clear Lung Sounds (Mayte Collier RN) Outcome: Patient will have Vital Signs within Expected Range (Mayte Collier RN) Outcome: Urine Output will be within Expected Range (Mayte Collier RN) Outcome: Patient will have Minimal Generalized or Upper Extremity Edema (Mayte Collier RN) Impaired Skin Integrity State: Risk For (Mayte Collier RN) Related To: Vaginal Delivery; Surgical Procedures (Mayte Collier RN) Goal(s): Patient will Maintain Optimal Skin Integrity, Free of Breakdown, Injury or Infection (Mayte Collier RN) Interventions: Complete Screening for Pressure Ulcer Risk and Initiate Protocol per Hospital Policy; Monitor Site of Skin Impairment for Color Changes, Redness, Swelling, Warmth, Pain or Other Signs of Infection; Encourage and Assist with Position Changes; Monitor Patient's Mobility Status; Provide Adequate Nutrition and Fluids; Teach Patient Appropriate Hygienic Care; Teach Patient/Family Skin Care Management (Mayte Collier RN) Outcome: Patient will not have Evidence of Injury Such as Skin Breakdown, Scrapes, Cuts, or Bruising (Mayte Collier RN) Outcome: Patient will Report Any Altered Sensation or Pain at Site of Skin Impairment (Mayte Collier RN) Outcome: Patients Incisions and Wounds will be without Signs or Symptoms of Infection (Mayte Collier RN) Outcome: Patient will Demonstrate Understanding of Plan to Heal Skin and Prevent Reinjury and Verbalize Risk Factors (Mayte Collier RN)
[2016-05-06 07:27] LABS: HEMATOCRIT 30.4 % (36.0-47.0); HEMOGLOBIN 10.3 g/dL (12.0-15.5); HGB HCT DIFFERENCE 0.5; MEAN CORPUSCULAR HEMOGLOBIN 28.8 pg (27.0-33.4); MEAN CORPUSCULAR VOLUME 85 fl (80-97); RED BLOOD COUNT 3.59 10^6/uL (3.72-5.28); RED CELL DISTRIBUTION WIDTH 14.4 % (11.5-14.0); WHITE BLOOD COUNT 9.2 10^3/uL (4.0-10.5)
[2016-05-06] MEDS: SENNOSIDES/DOCUSATE 8.6-50 MG 1 EACH TABLET PO SCH (09:58)
[2016-05-06] MEDS: PRENATAL VITAMIN W-O CA NO5/FE FUMARATE/FA CAPSULE PO SCH (09:58)
[2016-05-06] MEDS: DOCUSATE SODIUM 100 MG CAPSULE PO SCH ×2 (09:58→17:29)
[2016-05-06] MEDS: FERROUS SULFATE 325 MG TABLET PO SCH ×2 (09:58→17:29)
--- NOTE | 2016-05-06 11:33 | PDOC PROGRESS REPORT ---
Subjective-OB Subjective: Post Delivery Day: 30 year old. s/p vaginal delivery offers no complaints ff@u-2 mild lochia bottlefeeding anticipate d/c tomorrow Physical Exam (OB) Vital Signs: Temp Pulse Resp BP Pulse Ox 97.9 F 77 18 133/89 H 100 05/06/16 07:29 05/06/16 07:29 05/06/16 07:29 05/06/16 07:29 05/06/16 07:29 Intake & Output 05/05/16 05/06/16 05/07/16 06:59 06:59 06:59 Weight 93.95 kg - Lochia Lochia Amount: Scant < 10 ml Lochia Color: Rubra/Red - Abdomen Description: Tender Hernia Present: No Fundal Description: Firm, Midline Fundal Height: u/u - u/2 Objective-Diagnostic Laboratory: 05/06/16 07:07 05/06/16 05/06/16 07:07 07:07 WBC 9.2 RBC 3.59 L Hgb 10.3 L Hct 30.4 L MCV 85 MCH 28.8 MCHC 34.0 RDW 14.4 H Plt Count 305 Blood Type A NEGATIVE
[2016-05-07] MEDS: IBUPROFEN 800 MG TABLET PO SCH (05:56)
--- NOTE | 2016-05-07 09:29 | PDOC DISCHARGE SUMMARY ---
Final Diagnosis Discharge Date: 05/07/16 Discharge Data - Discharge Medication Home Medications: Acetaminophen [Tylenol 325 mg Tablet] 2 tab PO PRN PRN 05/04/16 Reason(s) for Admission: Onset of Labor Procedures: NST Intrapartum Procedure(s): Spontaneous Vaginal Delivery - Diagnosis Test Laboratory: Temp Pulse Resp BP Pulse Ox 98.1 F 57 L 15 148/89 H 100 05/07/16 07:43 05/07/16 07:43 05/07/16 07:43 05/07/16 07:43 05/07/16 07:43 05/04/16 05/05/16 05/06/16 22:30 02:04 07:07 RBC 4.01 3.59 L Hgb 11.5 L 10.3 L Hct 34.2 L 30.4 L Urine Opiates Screen NEGATIVE - Discharge information/Instructions Discharge Activity: Activity As Tolerated, Pelvic Rest Discharge Diet: Regular Disposition: HOME, SELF-CARE Follow up with: [facility] in: 1, Weeks
[2016-05-07] MEDS: PRENATAL VITAMIN W-O CA NO5/FE FUMARATE/FA CAPSULE PO SCH (11:18)
[2016-05-07] MEDS: DOCUSATE SODIUM 100 MG CAPSULE PO SCH (11:18)
[2016-05-07] MEDS: SENNOSIDES/DOCUSATE 8.6-50 MG 1 EACH TABLET PO SCH (11:18)
[2016-05-07] MEDS: FERROUS SULFATE 325 MG TABLET PO SCH (11:18)
[2016-05-07 12:07] VITALS: BP 137/89
== END 2016-05-07 13:25 | disposition home or self-care (01) | DRG 775 ==
LOC: LC 22:10 → LR 05-05 01:54 → 2S 05-05 08:05
PROVIDERS: ADMIT Obstetrics & Gynecology; ATTEND Obstetrics & Gynecology
PROC: 10E0XZZ Delivery of Products of Conception, External Approach (ICD-10-PCS; principal; 2016-05-05)
PROC: 4A1HXCZ Monitoring of Products of Conception, Cardiac Rate, External Approach (ICD-10-PCS; 2016-05-05)
PROC: 3E0234Z Introduction of Serum, Toxoid and Vaccine into Muscle, Percutaneous Approach (ICD-10-PCS; 2016-05-06)
DX: O99.824 Streptococcus B carrier state complicating childbirth (principal); O24.429 Gestational diabetes mellitus in childbirth, unspecified control; O99.344 Other mental disorders complicating childbirth; O26.893 Other specified pregnancy related conditions, third trimester; F41.9 Anxiety disorder, unspecified; F31.9 Bipolar disorder, unspecified; Z3A.38 38 weeks gestation of pregnancy; Z37.0 Single live birth; Z88.0 Allergy status to penicillin; Z67.91 Unspecified blood type, Rh negative
CPT/HCPCS: 36415; 59025; 80307; 81005; 84112; 85025; 85027; 85461; 86592; 86850; 86900; 86901; J2300; J2550; J2590; J2790; J3370; J3490

== ENCOUNTER 2016-10-11 08:46 | Emergency (ER) | payer MEDICAID ==
[2016-10-11] MEDS ORDERED: NORMAL SALINE 1000 ML 1,000 ML IV ONE (09:59)
[2016-10-11] MEDS ORDERED: ONDANSETRON HCL INJ/PF 4 MG/2 ML SDV IV ONE (10:00)
[2016-10-11 11:33] LABS: ABSOLUTE LYMPHOCYTES (AUTO) 1.1 10^3/uL (0.5-4.7); ABSOLUTE MONOCYTES (AUTO) 0.4 10^3/uL (0.1-1.4); ABSOLUTE NEUT (AUTO) 4.7 10^3/uL (1.7-8.2); BASOPHILS % (AUTO) 0.5 % (0-2); EOSINOPHILS % (AUTO) 0.8 % (0-6); HEMATOCRIT 40.3 % (36.0-47.0); HEMOGLOBIN 13.8 g/dL (12.0-15.5); HGB HCT DIFFERENCE 1.1; LYMPHOCYTES % (AUTO) 17.9 % (13-45); MEAN CORPUSCULAR HEMOGLOBIN 29.1 pg (27.0-33.4); MEAN CORPUSCULAR HGB CONC 34.2 g/dL (32.0-36.0); MEAN CORPUSCULAR VOLUME 85 fl (80-97); MONOCYTES % (AUTO) 6.6 % (3-13); RED BLOOD COUNT 4.74 10^6/uL (3.72-5.28); RED CELL DISTRIBUTION WIDTH 13.9 % (11.5-14.0); SEGMENTED NEUTROPHILS % (AUTO) 74.2 % (42-78); WHITE BLOOD COUNT 6.4 10^3/uL (4.0-10.5)
[2016-10-11 11:40] LABS: ALANINE AMINOTRANSFERASE 29 U/L (9-52); ALBUMIN 4.5 g/dL (3.5-5.0); ALKALINE PHOSPHATASE 96 U/L (38-126); ANION GAP 13 (5-19); ASPARTATE AMINO TRANSFERASE 23 U/L (14-36); BILIRUBIN,DIRECT 0.3 mg/dL (0.0-0.4); BILIRUBIN,TOTAL 0.8 mg/dL (0.2-1.3); BLOOD UREA NITROGEN 8 mg/dL (7-20); CALCIUM 9.2 mg/dL (8.4-10.2); CARBON DIOXIDE 23 mmol/L (22-30); CHLORIDE 104 mmol/L (98-107); CREATININE RESULT 0.63 mg/dL (0.52-1.25); GLUCOSE 100 mg/dL (75-110); POTASSIUM 3.9 mmol/L (3.6-5.0); SODIUM 139.5 mmol/L (137-145); TOTAL PROTEIN 8.2 g/dL (6.3-8.2)
--- NOTE | 2016-10-11 12:48 | ER Document Report ---
ED General - General Chief Complaint: Vomiting Stated Complaint: VOMITING/DIZZINESS Time Seen by Provider: 10/11/16 09:58 TRAVEL OUTSIDE OF THE [place] IN LAST 30 DAYS: No - HPI Patient complains to provider of: Nausea vomiting Notes: Patient is coming in for evaluation nausea vomiting states ongoing for greater than 1 week. Patient states that she has been in the hospital is that her child 5-month-old has whooping cough is admitted upstairs. Patient denies any fevers or chills denies any diarrhea. Patient is unaware of her status at this time. Patient denies any abdominal pain or chest pain. Denies recent travel. - Related Data Allergies/Adverse Reactions: penicillin V [Penicillin V] Allergy (Intermediate, Verified 10/11/16 08:50) Opioids - Morphine Analogues Allergy (Verified 10/11/16 08:50) Past Medical History - Social History Smoking Status: Never Smoker Chew tobacco use (# tins/day): No Frequency of alcohol use: None Drug Abuse: Marijuana Family History: Reviewed & Not Pertinent Patient has suicidal ideation: No Patient has homicidal ideation: No Pulmonary Medical History: Reports: Hx Asthma Endocrine Medical History: Reports: Hx Diabetes Mellitus Type 2 - gestational DM Renal/ Medical History: Denies: Hx Peritoneal Dialysis Psychiatric Medical History: Reports: Hx Anxiety, Hx Bipolar Disorder - Immunizations Hx Diphtheria, Pertussis, Tetanus Vaccination: Yes Review of Systems - Review of Systems Constitutional: No symptoms reported EENT: No symptoms reported Cardiovascular: No symptoms reported Respiratory: No symptoms reported Gastrointestinal: Nausea, Vomiting Genitourinary: No symptoms reported Female Genitourinary: No symptoms reported Musculoskeletal: No symptoms reported Skin: No symptoms reported Hematologic/Lymphatic: No symptoms reported Neurological/Psychological: No symptoms reported -: Yes All other systems reviewed and negative Physical Exam - Vital signs Vitals: Temp Pulse Resp BP Pulse Ox 98.0 F 69 18 135/94 H 98 10/11/16 08:50 10/11/16 08:50 10/11/16 08:50 10/11/16 08:50 10/11/16 08:50 Interpretation: Normal - General General appearance: Appears well, Alert - HEENT Head: Normocephalic, Atraumatic Eyes: Normal Pupils: PERRL - Respiratory Respiratory status: No respiratory distress Chest status: Nontender Breath sounds: Normal Chest palpation: Normal - Cardiovascular Rhythm: Regular Heart sounds: Normal auscultation Murmur: No - Abdominal Inspection: Normal Distension: No distension Bowel sounds: Normal Tenderness: Nontender Organomegaly: No organomegaly - Back Back: Normal, Nontender - Extremities General upper extremity: Normal inspection, Nontender, Normal color, Normal ROM , Normal temperature General lower extremity: Normal inspection, Nontender, Normal color, Normal ROM , Normal temperature, Normal weight bearing. No: Efrain's sign - Neurological Neuro grossly intact: Yes Cognition: Normal Orientation: AAOx4 [place] Coma Scale Eye Opening: Spontaneous Sarah Coma Scale Verbal: Oriented [place] Coma Scale Motor: Obeys Commands [place] Coma Scale Total: 15 Speech: Normal Motor strength normal: LUE, RUE, LLE, RLE Sensory: Normal - Psychological Associated symptoms: Normal affect, Normal mood - Skin Skin Temperature: Warm Skin Moisture: Dry Skin Color: Normal Course - Re-evaluation Re-evalutation: 10/11/16 15:01 Beta-hCG return positive. Bedside ultrasound shows gestational sac. This patient had approximately 4-5 weeks. No abdominal pain and need for formal ultrasound this time. Encouraged patient to follow-up with her [employer] Tylenol for pain control Reglan for nausea encouraged patient to hydrate. Patient states she does always things that she was recently . Patient was discharged at her request. - Vital Signs Vital signs: Temp Pulse Resp BP Pulse Ox 97.5 F 93 16 127/81 H 100 10/11/16 13:04 10/11/16 13:04 10/11/16 13:04 10/11/16 13:04 10/11/16 13:04 - Laboratory Result Diagrams: 10/11/16 11:10 10/11/16 11:10 Laboratory results interpreted by me: 10/11/16 11:10 Beta HCG, Quant 69104.00 H Discharge - Discharge Clinical Impression: Nausea/vomiting in Qualifiers: Weeks of gestation: less than 8 weeks Qualified Code(s): Z3A.01 - Less than 8 weeks gestation of Condition: Good Disposition: HOME, SELF-CARE Instructions: ([facility]), Nausea or Vomiting, Nonspecific ([facility]) Additional Instructions: Your laboratory studies today show that you are . Congratulations. Please take medication as prescribed for your nausea vomiting Tylenol for pain control highly recommend follow-up with your [employer]. Return to the ER for experiencing abdominal pain. Prescriptions: Metoclopramide HCl [Reglan] 5 mg PO Q6 #20 tablet Zuy398/FA/Omega3/Dha/Fish Oil [ Gummies] 1 each PO DAILY #30 tab.chew Forms: Return to Work
[2016-10-11 13:06] VITALS: BP 127/81
== END 2016-10-11 13:04 | disposition home or self-care (01) ==
LOC: ER 08:46
DX: O21.9 Vomiting of pregnancy, unspecified (principal); O99.511 Diseases of the respiratory system complicating pregnancy, first trimester; J45.909 Unspecified asthma, uncomplicated; Z3A.01 Less than 8 weeks gestation of pregnancy; Z88.5 Allergy status to narcotic agent; Z88.0 Allergy status to penicillin
CPT/HCPCS: 99284; 96361; 96374; 36415; 84702; 83690; 85025; 80053; J2405; J7030

== ENCOUNTER 2016-10-30 13:54 | Emergency (ER) | payer MEDICAID ==
[2016-10-30] MEDS ORDERED: METOCLOPRAMIDE HCL 10 MG TABLET PO ONE (15:50)
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
[2016-10-30 16:15] LABS: ABSOLUTE LYMPHOCYTES (AUTO) 1.1 10^3/uL (0.5-4.7); ABSOLUTE MONOCYTES (AUTO) 0.4 10^3/uL (0.1-1.4); ABSOLUTE NEUT (AUTO) 6.4 10^3/uL (1.7-8.2); BASOPHILS % (AUTO) 0.3 % (0-2); EOSINOPHILS % (AUTO) 0.1 % (0-6); HEMATOCRIT 40.1 % (36.0-47.0); HGB HCT DIFFERENCE 1.9; LYMPHOCYTES % (AUTO) 14.1 % (13-45); MEAN CORPUSCULAR HEMOGLOBIN 30.2 pg (27.0-33.4); MEAN CORPUSCULAR HGB CONC 35.1 g/dL (32.0-36.0); MEAN CORPUSCULAR VOLUME 86 fl (80-97); MONOCYTES % (AUTO) 4.6 % (3-13); RED BLOOD COUNT 4.65 10^6/uL (3.72-5.28); RED CELL DISTRIBUTION WIDTH 13.1 % (11.5-14.0); SEGMENTED NEUTROPHILS % (AUTO) 80.9 % (42-78)
[2016-10-30 16:23] LABS: APPEARANCE,URINE SLIGHTLY-CLOUDY; BILIRUBIN,URINE NEGATIVE (NEGATIVE); GLUCOSE, URINE NEGATIVE (NEGATIVE); KETONES,URINE 80 mg/dL (NEGATIVE); LEUKOCYTE ESTERASE,URINE NEGATIVE (NEGATIVE); NITRITE,URINE NEGATIVE (NEGATIVE); PROTEIN,URINE NEGATIVE (NEGATIVE); URINE SPECIFIC GRAVITY 1.031; UROBILINOGEN,URINE NEGATIVE mg/dL (<2.0)
[2016-10-30 16:27] LABS: ALANINE AMINOTRANSFERASE 27 U/L (9-52); ALBUMIN 4.3 g/dL (3.5-5.0); ALKALINE PHOSPHATASE 77 U/L (38-126); ANION GAP 14 (5-19); ASPARTATE AMINO TRANSFERASE 17 U/L (14-36); BILIRUBIN,DIRECT 0.3 mg/dL (0.0-0.4); BILIRUBIN,TOTAL 0.7 mg/dL (0.2-1.3); BLOOD UREA NITROGEN 9 mg/dL (7-20); CALCIUM 9.4 mg/dL (8.4-10.2); CARBON DIOXIDE 25 mmol/L (22-30); CHLORIDE 98 mmol/L (98-107); CREATININE RESULT 0.59 mg/dL (0.52-1.25); GLUCOSE 92 mg/dL (75-110); POTASSIUM 3.8 mmol/L (3.6-5.0); SODIUM 137.4 mmol/L (137-145); TOTAL PROTEIN 7.7 g/dL (6.3-8.2)
[2016-10-30 18:23] VITALS: BP 125/79
[2016-10-30 19:31] LABS: CHLAM PCR DETECTED (NOT DETECT)
[2016-10-30] MEDS ORDERED: LIDOCAINE 1% INJ-PF (10 MG/ML) 30 ML SDV INJ ONE (19:47)
[2016-10-30] MEDS ORDERED: AZITHROMYCIN 250 MG TABLET PO ONE (19:47)
[2016-10-30] MEDS ORDERED: CEFTRIAXONE INJ 250 MG VIAL IM ONE (19:47)
== END 2016-10-30 18:10 | disposition home or self-care (01) ==
LOC: ER 13:54
DX: O21.9 Vomiting of pregnancy, unspecified (principal); O98.311 Other infections with a predominantly sexual mode of transmission complicating pregnancy, first trimester; A54.9 Gonococcal infection, unspecified; O26.891 Other specified pregnancy related conditions, first trimester; O9A.211 Injury, poisoning and certain other consequences of external causes complicating pregnancy, first trimester; T14.90 Injury, unspecified; X58.XXXA Exposure to other specified factors, initial encounter; O36.0910 Maternal care for other rhesus isoimmunization, first trimester, not applicable or unspecified; O99.511 Diseases of the respiratory system complicating pregnancy, first trimester; J45.909 Unspecified asthma, uncomplicated; Z3A.00 Weeks of gestation of pregnancy not specified; Z88.0 Allergy status to penicillin; Z88.1 Allergy status to other antibiotic agents
CPT/HCPCS: 99284; 96372; 86900; 86901; 36415; 86850; 84702; 85025; 80053; 81001; 87491; 87591; J2790; J3490

== ENCOUNTER 2016-10-30 21:06 | Emergency (ER) | payer MEDICAID ==
[2016-10-30] MEDS ORDERED: AZITHROMYCIN 250 MG TABLET PO ONE (21:32)
[2016-10-30] MEDS ORDERED: CEFTRIAXONE INJ 250 MG VIAL IM ONE (21:32)
[2016-10-30] MEDS ORDERED: LIDOCAINE 1% INJ-PF (10 MG/ML) 30 ML SDV INJ ONE (21:32)
--- NOTE | 2016-10-30 22:00 | ER Document Report ---
HPI - HPI Patient complains to provider of: treatment for gonorrhea and chlamydia Onset: Other Severity: Moderate Pain Level: 4 Associated Symptoms: Other - Patient return to ED for treatment of gonorrhea and chlamydia. She was seen earlier in the day and tested the test results were positive the doctor who saw her called her and asked her to come back to the ED for Rocephin and azithromycin Exacerbated by: Denies Relieved by: Denies Similar symptoms previously: Yes Recently seen / treated by doctor: Yes - ROS ROS below otherwise negative: Yes - CONSTITUTIONAL Constitutional: DENIES: Fever, Chills - EENT EENT: DENIES: Sore Throat, Ear Pain, Nasal Drainage-Clear, Nasal Drainage- Purulent, Congestion, Eye problems - NEURO Neurology: DENIES: Headache, Weakness, Vision blurred, Dizzinesss / Vertigo - CARDIOVASCULAR Cardiovascular: DENIES: Chest pain - RESPIRATORY Respiratory: DENIES: Trouble Breathing, Coughing - GASTROINTESTINAL Gastrointestinal: REPORTS: Nausea Notes: Pelvic pain and - URINARY Urinary: DENIES: Dysuria, Urgency, Frequency - REPRODUCTIVE Reproductive: REPORTS: : - MUSCULOSKELETAL Musculoskeletal: DENIES: Extremity pain, Back Pain, Neck Pain, Swelling - DERM Skin Color: Normal Skin Problems: None Past Medical History - General Information source: Patient - Social History Smoking Status: Unknown if Ever Smoked Family History: Reviewed & Not Pertinent Patient has suicidal ideation: No Patient has homicidal ideation: No - Past Medical History Cardiac Medical History: Reports: None Pulmonary Medical History: Reports: Hx Asthma EENT Medical History: Reports: None Neurological Medical History: Reports: None Endocrine Medical History: Reports: Hx Diabetes Mellitus Type 2 - gestational DM Renal/ Medical History: Reports: Hx Pelvic Inflammatory Disease Malignancy Medical History: Reports: None GI Medical History: Reports: None Musculoskeltal Medical History: Reports None Skin Medical History: Reports None Psychiatric Medical History: Reports: Hx Anxiety, Hx Bipolar Disorder Traumatic Medical History: Reports: None Infectious Medical History: Reports: None Surgical Hx: Negative Past Surgical History: Reports: None - Immunizations Hx Diphtheria, Pertussis, Tetanus Vaccination: Yes Vertical Provider Document - CONSTITUTIONAL Agree With Documented VS: Yes Exam Limitations: No Limitations General Appearance: WD/WN - INFECTION CONTROL TRAVEL OUTSIDE OF THE [place] IN LAST 30 DAYS: No - HEENT HEENT: Atraumatic, Normal ENT Exam, Normocephalic, PERRLA - RESPIRATORY Respiratory: No Respiratory Distress, Chest Non-Tender - CARDIOVASCULAR Cardiovascular: Regular Rate, Regular Rhythm - MUSCULOSKELETAL/EXTREMETIES Musculoskeletal/Extremeties: MANDEEP, FROM, Non-Tender - NEURO Level of Consciousness: Awake, Alert - DERM Integumentary: Warm, Dry, No Rash Course - Re-evaluation Re-evalutation: 10/30/16 22:39 Treated with azithromycin 1 g p.o. and Rocephin 50 mg IM for gonorrhea and Chlamydia. Patient states she was treated with the same last year. Discharge - Discharge Clinical Impression: Chlamydia, Gonorrhea Condition: Stable Disposition: HOME, SELF-CARE Additional Instructions: VAGINITIS: Your exam shows that you have vaginitis, a vaginal infection. The infection can be caused by a many different organisms, including trichomonas or Gardnerella. The usual symptoms are vaginal irritation and discharge. The treatment is usually antibiotics such as Flagyl. Laboratory tests can determine which germ is responsible. Use the medication as prescribed. Because this infection can be transmitted sexually, your sexual partner may need to be checked and treated also. If your physician has not discussed this with you, please check before resuming sexual relations. If a culture shows gonorrhea or chlamydia, the infection must be reported to the health department. Call the doctor if you develop pelvic pain, fever, or problems with urination, or if you don't improve as expected. Gonorrhea You have been diagnosed with gonorrhea. In men, this germ infects the urethra (and sometimes the throat). Men usually have drainage from the penis and pain with urination. In women, the germ infects the vagina and fallopian tubes. There may be discharge and pelvic pain. Some women have no symptoms at all. The infection can do permanent damage to the tubes and ovaries. It should be taken very seriously. Treatment is antibiotics. It's important that you receive all recommended medication. Use condoms to prevent spread of the infection. Because this infection is spread sexually, your sexual partner must be checked before resuming sexual relations. If a culture shows gonorrhea germs, it must be reported to the health department. Call the doctor or return at once if you develop increasing fever, rash, joint swelling, severe pelvic pain, vaginal bleeding (other than your period), or problems with your bladder or bowels. Chlamydia You have a chlamydia infection. Chlamydia is a germ that grows inside the cells of the mucous membranes. It often infects the eyes, urethra, and fallopian tubes. It can cause chronic pain and scar tissue if untreated. Antibiotics are used to treat chlamydia. It's important to take all the medicine even if there are no symptoms. Use condoms to prevent spread of the infection. Because this infection can spread by sexual contact, it's important that your sexual partner be checked before resuming sexual relations. A positive test for chlamydia has to be reported to the health department. Call the doctor or return at once if you develop increasing fever, rash, severe pelvic pain, vaginal bleeding (other than your period), or problems with your bladder or bowels. Rocephin You have been given an injection of an antibiotic called Rocephin ( ceftriaxone). Sometimes the injection must be combined with antibiotic pills. For some infections, such as an uncomplicated ear infection, Rocephin provides all the antibiotic that's needed. The antibiotic will be in your body for about two days. For serious infections, we usually repeat doses of Rocephin daily. Side effects are very unusual following a shot. Women may develop vaginal yeast infections, and babies can get yeast (thrush) in the mouth following the use of antibiotics. Contact your physician if you have symptoms with this medication. Allergy to this antibiotic can result in hives, wheezing, faintness, or itching. If symptoms of allergy occur, call the doctor at once. AZITHROMYCIN: Azithromycin (Zithromax) is a broad spectrum antibiotic in the same class as erythromycin. It can treat a variety of bacterial infections, but is most frequently used for respiratory infections. Azithromycin is extremely long-lasting. It accumulates in body tissues and continues to kill bacteria for many days. In order to improve absorption, Azithromycin should be taken at least one hour before or two hours after a meal. It does not have the same strong tendency to upset the stomach as erythromycin and is usually very well tolerated. Patients who have had a rash or other true allergic reactions to erythromycin should not take this medication. Call if you develop gastrointestinal distress, severe diarrhea, rash, hives, itching, or shortness of breath. FOLLOW-UP CARE: If you have been referred to a physician for follow-up care, call the physician s office for an appointment as you were instructed or within the next two days. If you experience worsening or a significant change in your symptoms, notify the physician immediately or return to the Emergency Department at any time for re-evaluation. Referrals: [facility] [Provider Group] - Follow up as needed
[2016-10-30 22:01] VITALS: BP 126/71
== END 2016-10-30 22:00 | disposition home or self-care (01) ==
LOC: ER 21:06
DX: O98.319 Other infections with a predominantly sexual mode of transmission complicating pregnancy, unspecified trimester (principal); A54.9 Gonococcal infection, unspecified; A74.9 Chlamydial infection, unspecified; O26.899 Other specified pregnancy related conditions, unspecified trimester; R11.0 Nausea; R10.2 Pelvic and perineal pain; O99.519 Diseases of the respiratory system complicating pregnancy, unspecified trimester; J45.909 Unspecified asthma, uncomplicated; Z3A.00 Weeks of gestation of pregnancy not specified
CPT/HCPCS: 99283; 96372; Q0144; J3490; J0696

== ENCOUNTER 2017-05-13 10:33 | Outpatient (CLI) | payer MEDICAID ==
[2017-05-13 11:53] LABS: APPEARANCE,URINE SLIGHTLY-CLOUDY; BILIRUBIN,URINE NEGATIVE (NEGATIVE); COLOR,URINE YELLOW; GLUCOSE, URINE NEGATIVE (NEGATIVE); KETONES,URINE NEGATIVE (NEGATIVE); LEUKOCYTE ESTERASE,URINE LARGE (NEGATIVE); NITRITE,URINE NEGATIVE (NEGATIVE); PROTEIN,URINE NEGATIVE (NEGATIVE); URINE SPECIFIC GRAVITY 1.014; UROBILINOGEN,URINE NEGATIVE mg/dL (<2.0)
[2017-05-13 12:14] LABS: URINE AMPHETAMINES SCREEN NEGATIVE; URINE BARBITURATES SCREEN NEGATIVE; URINE BENZODIAZEPINES SCREEN NEGATIVE; URINE COCAINE SCREEN NEGATIVE; URINE METHADONE SCREEN NEGATIVE; URINE PHENCYCLIDINE SCREEN NEGATIVE
[2017-05-13 12:29] LABS: URINE MARIJUANA (THC) SCREEN UNCONFIRMED POSITIVE
[2017-05-13] MEDS ORDERED: ACETAMINOPHEN 325 MG TABLET PO ONE (13:47)
[2017-05-13] MEDS ORDERED: ACETAMINOPHEN 325 MG TABLET ONE (13:53)
[2017-05-13 14:25] LABS: BACTERIA (WET MOUNT) 3+ BACTERIA SEEN; RBCS (WET MOUNT) RARE RBCS SEEN; T.VAGINALIS (WET MOUNT) TRICHOMONAS SEEN; WBCS (WET MOUNT) 2+ WBCS SEEN; YEAST (WET MOUNT) NO YEAST SEEN
[2017-05-13] MEDS ORDERED: METRONIDAZOLE 500 MG TABLET PO ONE (14:36)
[2017-05-13] MEDS ORDERED: METRONIDAZOLE 500 MG TABLET ONE (14:39)
[2017-05-13 15:47] LABS: CHLAM PCR NOT DETECTED (NOT DETECT); GON PCR NOT DETECTED (NOT DETECT)
== END 2017-05-13 14:57 | disposition home or self-care (01) ==
LOC: LC 10:33
PROVIDERS: ATTEND Obstetrics & Gynecology
PROC: 4A1HXCZ Monitoring of Products of Conception, Cardiac Rate, External Approach (ICD-10-PCS; principal; 2017-05-13)
DX: O98.313 Other infections with a predominantly sexual mode of transmission complicating pregnancy, third trimester (principal); Z3A.36 36 weeks gestation of pregnancy
CPT/HCPCS: 59025; 87210; 81005; 87081; 80307; 87491; 87591; J3490 ×2

== ENCOUNTER 2017-05-15 08:08 | Observation (INO) | payer MEDICAID ==
[2017-05-15] MEDS ORDERED: ACETAMINOPHEN 325 MG TABLET ONE ×3 (08:35→17:48)
[2017-05-15] MEDS ORDERED: ACETAMINOPHEN 325 MG TABLET PO ONE (08:38)
[2017-05-15] MEDS ORDERED: RINGERS SOLUTION,LACTATED 1,000 ML IV PRN (08:38)
[2017-05-15 09:14] LABS: APPEARANCE,URINE SLIGHTLY-CLOUDY; BILIRUBIN,URINE NEGATIVE (NEGATIVE); COLOR,URINE YELLOW; GLUCOSE, URINE NEGATIVE (NEGATIVE); KETONES,URINE NEGATIVE (NEGATIVE); LEUKOCYTE ESTERASE,URINE SMALL (NEGATIVE); NITRITE,URINE NEGATIVE (NEGATIVE); PROTEIN,URINE 100 mg/dL (NEGATIVE); URINE SPECIFIC GRAVITY 1.015
[2017-05-15 09:30] LABS: URINE AMPHETAMINES SCREEN NEGATIVE; URINE BARBITURATES SCREEN NEGATIVE; URINE BENZODIAZEPINES SCREEN NEGATIVE; URINE COCAINE SCREEN NEGATIVE; URINE METHADONE SCREEN NEGATIVE; URINE PHENCYCLIDINE SCREEN NEGATIVE
[2017-05-15 09:34] LABS: ABSOLUTE LYMPHOCYTES (AUTO) 0.9 10^3/uL (0.5-4.7); ABSOLUTE MONOCYTES (AUTO) 1.1 10^3/uL (0.1-1.4); ABSOLUTE NEUT (AUTO) 13.8 10^3/uL (1.7-8.2); BASOPHILS % (AUTO) 0.3 % (0-2); HEMATOCRIT 31.4 % (36.0-47.0); HEMOGLOBIN 10.7 g/dL (12.0-15.5); LYMPHOCYTES % (AUTO) 5.7 % (13-45); MEAN CORPUSCULAR HEMOGLOBIN 28.3 pg (27.0-33.4); MEAN CORPUSCULAR HGB CONC 34.2 g/dL (32.0-36.0); MEAN CORPUSCULAR VOLUME 83 fl (80-97); MONOCYTES % (AUTO) 7.2 % (3-13); PLATELET COUNT 306 10^3/uL (150-450); RED BLOOD COUNT 3.79 10^6/uL (3.72-5.28); RED CELL DISTRIBUTION WIDTH 13.8 % (11.5-14.0); SEGMENTED NEUTROPHILS % (AUTO) 86.8 % (42-78); TOTAL CELLS COUNTED % (AUTO) 100 %; WHITE BLOOD COUNT 15.8 10^3/uL (4.0-10.5)
[2017-05-15 09:42] LABS: URINE MARIJUANA (THC) SCREEN UNCONFIRMED POSITIVE
[2017-05-15 10:15] LABS: A TYPE INFLUENZA AG NEGATIVE (NEGATIVE); B INFLUENZA AG NEGATIVE (NEGATIVE)
--- NOTE | 2017-05-15 11:39 | RADIOLOGY REPORT (SQ) ---
EXAM DESCRIPTION: U/S PROFILE W/O STRESS COMPLETED DATE/TIME: 05/15/2017 11:15 am REASON FOR STUDY: BPP COMPARISON: No prior OB ultrasounds are available for comparison TECHNIQUE: Limited amador-scale realtime and static images of the fetus to measure specified parameter s. LIMITATIONS: None. FINDINGS: HEART RATE: 157 beats per minute. VERONICA: Total VERONICA 2.9 cm. No single pocket greater than 2 cm in size is identified. BREATHING MOVEMENT: 2 points. MOVEMENT: 0 points. POSTURE AND TONE: 2 points. QUALITATIVE VERONICA: 0 points. OTHER: No other significant finding. IMPRESSION: BIOPHYSICAL PROFILE: 4 out of 8 Trimester of : Third - 28 weeks to delivery RECOMMENDATION: Report called to Leeann Gurrola RN on Labor and delivery, 1115 hours 05/15/2017 COMMENT: BREATHING MOVEMENTS: 2 POINTS: PRESENT 0 POINTS: ABSENT MOTION: 2 POINTS: PRESENT 0 POINTS: ABSENT TONE: 2 POINTS: PRESENT 0 POINTS: ABSENT AMNIOTIC FLUID VOLUME: 2 POINTS: LARGEST POCKET GREATER THAN 2 CM DEPTH. 0 POINTS: NO POCKET OF 2 CM. TECHNICAL DOCUMENTATION: JOB ID: [id number] [employer]- All Rights Reserved
[2017-05-15] MEDS ORDERED: CEFTRIAXONE INJ 1000 MG VIAL ONE (17:58)
[2017-05-15] MEDS ORDERED: CEFTRIAXONE INJ 1000 MG VIAL IM SCH (18:00)
--- NOTE | 2017-05-15 18:00 | RADIOLOGY REPORT (SQ) ---
EXAM DESCRIPTION: U/S OB LIMITED COMPLETED DATE/TIME: 05/15/2017 5:44 pm REASON FOR STUDY: repeat VERONICA COMPARISON: None. TECHNIQUE: Limited transabdominal grayscale ultrasound for evaluation of specific requested obstetri elmo parameters. LIMITATIONS: None. FINDINGS: Repeat evaluation for amniotic fluid index. Four-quadrant VERONICA generates a value of 5.6 cm . heart rate 169 beats per minute IMPRESSION: Total VERONICA 5.6 cm Trimester of : Third trimester - 28 weeks to delivery. TECHNICAL DOCUMENTATION: JOB ID: [id number] [employer]- All Rights Reserved
[2017-05-15] MEDS: ACETAMINOPHEN 325 MG TABLET PO PRN ×4 (18:37→18:39)
[2017-05-15] MEDS ORDERED: VANCOMYCIN HCL INJ 1000 MG VIAL ONE (18:39)
--- NOTE | 2017-05-15 18:49 | RADIOLOGY REPORT (SQ) ---
EXAM DESCRIPTION: CHEST SINGLE VIEW COMPLETED DATE/TIME: 05/15/2017 6:39 pm REASON FOR STUDY: patient temperature COMPARISON: None. EXAM PARAMETERS: NUMBER OF VIEWS: One view. TECHNIQUE: Single frontal radiographic view of the chest acquired. RADIATION DOSE: NA, abdomen and pelvis was shielded during the exposure LIMITATIONS: None. FINDINGS: LUNGS AND PLEURA: No opacities, masses or pneumothorax. No pleural effusion. MEDIASTINUM AND HILAR STRUCTURES: No masses. Contour normal. HEART AND VASCULAR STRUCTURES: Heart normal in size. Normal vasculature. BONES: No acute findings. HARDWARE: None in the chest. OTHER: No other significant finding. IMPRESSION: NO ACUTE RADIOGRAPHIC FINDING IN THE CHEST. TECHNICAL DOCUMENTATION: JOB ID: [id number] [employer]- All Rights Reserved
[2017-05-15] MEDS ORDERED: VANCOMYCIN HCL 1,000 MG in DEXTROSE 5%-WATER 250 ML IV ONE (19:30)
[2017-05-15] MEDS ORDERED: MAG HYDROX/AL HYDROX/SIMETH SUSP 30 ML UDCUP ONE (22:43)
[2017-05-16] MEDS ORDERED: ACETAMINOPHEN 325 MG TABLET ONE ×2 (01:09→12:13)
[2017-05-16] MEDS ORDERED: VANCOMYCIN HCL INJ 1000 MG VIAL ONE (05:47)
[2017-05-16] MEDS ORDERED: CEFTRIAXONE INJ 1000 MG VIAL ONE (08:00)
[2017-05-16] MEDS ORDERED: CEFTRIAXONE INJ 1000 MG VIAL IV SCH (09:00)
--- NOTE | 2017-05-16 09:05 | RADIOLOGY REPORT (SQ) ---
EXAM DESCRIPTION: U/S OB LIMITED COMPLETED DATE/TIME: 05/16/2017 8:53 am REASON FOR STUDY: repeat VERONICA COMPARISON: OB ultrasound exams 05/15/2017, 1043 hours and 1720 hours TECHNIQUE: Limited transabdominal grayscale ultrasound for evaluation of specific requested obstetri elmo parameters. LIMITATIONS: None. FINDINGS: VERONICA: 6.4 cm. FHR: 144 beats per minute. PRESENTATION: Cephalic. OTHER: No other significant findings. IMPRESSION: LIMITED OBSTETRICAL ULTRASOUND WITH MEASURED PARAMETERS DELINEATED ABOVE. Trimester of : Third trimester - 28 weeks to delivery. TECHNICAL DOCUMENTATION: JOB ID: [id number] [employer]- All Rights Reserved
[2017-05-16] MEDS ORDERED: VANCOMYCIN HCL 1,000 MG in DEXTROSE 5%-WATER 250 ML IV SCH ×2 (10:00→18:00)
[2017-05-16 10:09] LABS: HEMATOCRIT 29.7 % (36.0-47.0); HEMOGLOBIN 10.1 g/dL (12.0-15.5); RED BLOOD COUNT 3.58 10^6/uL (3.72-5.28); WHITE BLOOD COUNT 14.9 10^3/uL (4.0-10.5)
[2017-05-16 10:10] LABS: ABSOLUTE LYMPHOCYTES (AUTO) 1.1 10^3/uL (0.5-4.7); ABSOLUTE MONOCYTES (AUTO) 0.5 10^3/uL (0.1-1.4); ABSOLUTE NEUT (AUTO) 13.3 10^3/uL (1.7-8.2); BASOPHILS % (AUTO) 0.2 % (0-2); EOSINOPHILS % (AUTO) 0.1 % (0-6); LYMPHOCYTES % (AUTO) 7.4 % (13-45); MEAN CORPUSCULAR HEMOGLOBIN 28.2 pg (27.0-33.4); MEAN CORPUSCULAR VOLUME 83 fl (80-97); MONOCYTES % (AUTO) 3.3 % (3-13); PLATELET COUNT 297 10^3/uL (150-450); TOTAL CELLS COUNTED % (AUTO) 100 %
[2017-05-16] MEDS ORDERED: MAG HYDROX/AL HYDROX/SIMETH SUSP 30 ML UDCUP ONE (12:13)
[2017-05-16] MEDS: ACETAMINOPHEN 325 MG TABLET PO PRN (12:16)
[2017-05-16] MEDS ORDERED: CEFTRIAXONE SODIUM 1,000 MG in NORMAL SALINE 100 ML IV SCH (20:00)
[2017-05-16 22:39] VITALS: BP 114/73
--- NOTE | 2017-05-31 09:37 | Admission Physical ---
Datetime Report Generated by THOMAS: 05/31/2017 09:37 Hx Assessment: The History has been Reviewed and is Current Chief Complaint: Illness Chief Complaint Other: Flu like symptoms Indication for Induction: Not Applicable Indication for Induction: , Intrauterine ; No Active Labor; Intact Membranes; Observation/Evaluation Admit Plan: Observation/Evaluation Medication Allergies: Yes Medication Allergies: Opioids - Morphine Analogues (05/15/2017); penicillin V/MO (05/15/2017) Medication Allergies: Opioids - Morphine Analogues (10/30/2016); penicillin V/MO (10/30/2016) Latex: Latex Allergies Food Allergies: N/A Environmental Allergies: N/A EDC: 06/06/2017 00:00 : 4 Para: 3 Term: 3 : 0 SAB: 0 IAB: 0 Ectopic: 0 Livin Cesareans: 0 VBACs: 0 Multiple Births: 0 Gestational Diabetes: No Rh Sensitization: No Incompetent Cervix: No MARISA: No Infertility: No ART Treatment: No Uterine Anomaly: No IUGR: No Hx Previous C/S: No Macrosomia: No Hx Loss/Stillborn: No PIH: No Hx : No Placenta Previa/Abruption: No Depression/PP Depression: Yes PTL/PROM: No Post Hemorrhage: No Current Procedures: Ultrasound; NST Obstetrical History Comments: G1: 2005- G2: 2007- G3: 2016- G4: current Alcohol: No Marijuana : Yes Marijuana Frequency: 3 - 5 Times Per Week Last Used: 05/14/2017 00:00 Previous Treatment: None Cocaine: No Other Illicit Drugs: No Cigarettes: Never Smoker. 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 Surgery: No Heart Disease: No Hosp/Surgery: Yes Autoimmune Disorder: No Anesthetic Complications: No Kidney Disease: No Abnormal Pap Smear: No Neuro/Epilepsy: No Psychiatric Disorders: Yes Other Medical Diseases: No Hepatitis/Liver Disease: No Significant Family History: No Varicosities/Phlebitis: No Trauma/Violence : No Thyroid Dysfunction: No Medical History Comments: broken nose x3, manic anxiety and severe panic disorder, asthma Gonorrhea: No Genital Herpes: No Chlamydia: No Tuberculosis: No Syphilis: No Hepatitis: No HIV/AIDS Exposure: No Rash or Viral Illness: No HPV: No General: Normal HEENT: Normal Neurologic: Normal Thyroid: Deferred Heart: Normal Lungs: Normal Breast: Normal Back: Normal Abdomen: Normal Genitourinary Exam: Normal Extremities: Normal DTRs: Normal Pelvic Type: Adequate Vital Signs: Reviewed Membranes: Intact Monitoring: External US FHR- Baseline: 170 Variability: Moderate 6-25bpm Accelerations: 15X15 FHR Category: Category II FHR Comments: tachycardia @ time of Admit Comment: presents with fever and body aches very limited care hx X3 at term. tachycardia ->resolved bpp 4/8, alejandro 2.7-> is now 6.4, nst now reactive hx asthma, psych disorder, ovarian cyst, abn pap, + gc/c/+ trich Observation tylenol, abx. Labor and Delivery: None Pain Management: Epidural Feeding Preference: Formula Benefit of Breast Feed Discussed: Yes Circumcision: N/A Assignment: Christiano Benson MD Signature: with User ID: [email or web address] : with User ID: [email or web address]
--- NOTE | 2017-06-08 15:19 | PDOC DISCHARGE SUMMARY ---
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 Is this a current diagnosis for this admission?: Yes - Additional Information Discharge Diet: As Tolerated, Regular Discharge Activity: Activity As Tolerated Home Medications: Docusate Sodium [Colace 100 mg Capsule] 100 mg PO BID #60 capsule 06/05/17 Ferrous Sulfate [Feosol 325 mg Tablet] 325 mg PO BID #60 tablet 06/05/17 Ibuprofen [Motrin 800 mg Tablet] 800 mg PO Q8HP PRN #60 tablet 06/05/17 Vit/Dha [ Multi + Dha Capsule] 1 cap PO DAILY #60 capsule 06/05 History of Present Illness History of Present Illness: JULIO BURGOS is a 31 year old female presented at approximately at term with little care. Presented with flu-like symptoms, tachycardia and BPP of 4/8. Placed on observation status for iv fluids, antibiotics and monitoring. Repeat testing reassuring and labs showing no signs of sepsis. Hospital Course Hospital Course: as above in HPI Physical Exam - Physical Exam Vital Signs: Temp Pulse Resp BP Pulse Ox 97.7 F 89 18 114/73 100 05/16/17 20:51 05/16/17 20:51 05/16/17 20:51 05/16/17 19:49 05/16/17 20:51 General appearance: PRESENT: no acute distress, cooperative GI/Abdominal exam: PRESENT: soft - gravid, obese, nontender Neurological exam: PRESENT: alert, awake Result Laboratory Results: 05/16/17 09:36 Impressions: Chest X-Ray 05/15/17 00:00 IMPRESSION: NO ACUTE RADIOGRAPHIC FINDING IN THE CHEST. Stress Test 05/15/17 10:07 IMPRESSION: BIOPHYSICAL PROFILE: 4 out of 8 Trimester of : Third - 28 weeks to delivery Obstetrics Ultrasound 05/16/17 07:00 IMPRESSION: LIMITED OBSTETRICAL ULTRASOUND WITH MEASURED PARAMETERS DELINEATED ABOVE. Trimester of : Third trimester - 28 weeks to delivery. Plan Discharge Plan: establish consistent care with health department or [facility] [place]. Increase hydration, cessation of ilicit drug use. Time Spent: Less than 30 Minutes
== END 2017-05-16 21:44 | disposition home or self-care (01) ==
LOC: LC 08:08 → LR 16:22 → 2S 05-16 12:37
PROVIDERS: ADMIT Obstetrics & Gynecology Gynecology; ATTEND Obstetrics & Gynecology Gynecology
PROC: 4A0HXCZ Measurement of Products of Conception, Cardiac Rate, External Approach (ICD-10-PCS; principal; 2017-05-16)
DX: O76 Abnormality in fetal heart rate and rhythm complicating labor and delivery (principal); O98.513 Other viral diseases complicating pregnancy, third trimester; B33.8 Other specified viral diseases; O99.323 Drug use complicating pregnancy, third trimester; F12.90 Cannabis use, unspecified, uncomplicated; O09.33 Supervision of pregnancy with insufficient antenatal care, third trimester
CPT/HCPCS: 59025; 86900; 86901; 36415 ×2; 87040; 87086; 86850; 85025 ×2; 86592; 81001; 80307; 87804; 71045; 76815 ×2; 76819; G0378 ×2; J0696 ×2; J7060; J3370 ×2

== ENCOUNTER 2017-06-03 14:10 | Inpatient (IN) | payer MEDICAID ==
--- NOTE | 2017-06-03 14:15 | Non Stress Test Report ---
Non Stress Test Datetime Report Generated by CPN: 06/03/2017 14:15 DEMOGRAPHIC EGA NST: 37.0 EGA NST: 36.4 INDICATION Indication for Study: Ordered by Provider Indication for Study: Ordered by Provider MONITORING Monitor Explained: Monitor Explained; Test Explained; Patient Verbalized Understanding Monitor Explained: Monitor Explained; Test Explained; Patient Verbalized Understanding Time on Monitor: 05/16/2017 07:32 Time on Monitor: 05/13/2017 11:51 Time off Monitor: 05/16/2017 07:52 Time off Monitor: 05/13/2017 12:12 NST Duration: 20 NST Duration: 21 NST INTERVENTIONS NST Interventions: PO Hydration; IV Fluids NST Interventions: PO Hydration; Reposition Patient Physician Notified NST: H DAVID, CNM Physician Notified NST: H. David, CNM Physician Notified NST: Dr. Pearl BABY A: [id number] BABY A Movement : Present Movement : Present Contraction Frequency : Irregular Contraction Frequency : Irregular FHR Baseline : 120 FHR Baseline : 150 Accelerations : 15X15 Accelerations : 15X15 Decelerations : None Decelerations : None Variability : Moderate 6-25bpm Variability : Moderate 6-25bpm NST Review: Meets Criteria for Reactive NST NST Review: Meets Criteria for Reactive NST NST Review and Verified By : GIOVANNA CANALES RN NST Review and Verified By : Halile Villegas RN NST Results: Reactive NST Results: Reactive NST REPORT Report Trigger: Send Report
--- NOTE | 2017-06-03 14:15 | Admission Physical ---
Datetime Report Generated by CPN: 06/03/2017 14:15 CURRENT ADMISSION Hx Assessment: The History has been Reviewed and is Current Chief Complaint: Illness Chief Complaint Other: Flu like symptoms Indication for Induction: Not Applicable Indication for Induction: , Intrauterine ; No Active Labor; Intact Membranes; Observation/Evaluation Admit Plan: Observation/Evaluation ALLERGIES Medication Allergies: Yes Medication Allergies: Opioids - Morphine Analogues (05/15/2017); penicillin V/MO (05/15/2017) Medication Allergies: Opioids - Morphine Analogues (10/30/2016); penicillin V/MO (10/30/2016) Latex: Latex Allergies Food Allergies: N/A Environmental Allergies: N/A OBSTETRICAL HISTORY EDC: 06/06/2017 00:00 : 4 Para: 3 Term: 3 : 0 SAB: 0 IAB: 0 Ectopic: 0 Livin Cesareans: 0 VBACs: 0 Multiple Births: 0 Gestational Diabetes: No Rh Sensitization: No Incompetent Cervix: No MARISA: No Infertility: No ART Treatment: No Uterine Anomaly: No IUGR: No Hx Previous C/S: No Macrosomia: No Hx Loss/Stillborn: No PIH: No Hx : No Placenta Previa/Abruption: No Depression/PP Depression: Yes PTL/PROM: No Post Hemorrhage: No Current Procedures: Ultrasound; NST Obstetrical History Comments: G1: G2: G3: G4: current SEE RECORDS Alcohol: No Marijuana : Yes Marijuana Frequency: 3 - 5 Times Per Week Last Used: 05/14/2017 00:00 Previous Treatment: None Cocaine: No Other Illicit Drugs: No Cigarettes: Never Smoker. 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: No Heart Disease: No Hosp/Surgery: Yes Autoimmune Disorder: No Anesthetic Complications: No Kidney Disease: No Abnormal Pap Smear: No Neuro/Epilepsy: No Psychiatric Disorders: Yes Other Medical Diseases: No Hepatitis/Liver Disease: No Significant Family History: No Varicosities/Phlebitis: No Trauma/Violence : No Thyroid Dysfunction: No Medical History Comments: broken nose x3, manic anxiety and severe panic disorder, asthma INFECTIOUS HISTORY Gonorrhea: No Genital Herpes: No Chlamydia: No Tuberculosis: No Syphilis: No Hepatitis: No HIV/AIDS Exposure: No Rash or Viral Illness: No HPV: No PHYSICAL EXAM General: Normal HEENT: Normal Neurologic: Normal Thyroid: Deferred Heart: Normal Lungs: Normal Breast: Normal Back: Normal Abdomen: Normal Genitourinary Exam: Normal Extremities: Normal DTRs: Normal Pelvic Type: Adequate Vital Signs: Reviewed MEMBRANES Membranes: Intact FETUS A EGA: 37.0 Monitoring: External US FHR- Baseline: 170 Variability: Moderate 6-25bpm Accelerations: 15X15 FHR Category: Category II FHR Comments: tachycardia @ time of Admit Comment: presents with fever and body aches very limited care hx X3 at term. tachycardia ->resolved bpp 4/8, alejandro 2.7-> is now 6.4, nst now reactive hx asthma, psych disorder, ovarian cyst, abn pap, + gc/c/+ trich Observation tylenol, abx. PLANS FOR LABOR AND DELIVERY Labor and Delivery: None Pain Management: Epidural Feeding Preference: Formula Benefit of Breast Feed Discussed: Yes Circumcision: N/A INFORMED CONSENT Assignment: Christiano Benson MD Signature: with User ID: [email or web address] : with User ID: [email or web address]
[2017-06-03] MEDS ORDERED: RINGERS SOLUTION,LACTATED 1,000 ML IV PRN (14:40)
[2017-06-03] MEDS ORDERED: MISOPROSTOL 0.2 MG TABLET PR PRN (14:42)
[2017-06-03] MEDS ORDERED: LIDOCAINE 1% INJ-PF (10 MG/ML) 30 ML SDV INJ PRN (14:42)
[2017-06-03] MEDS ORDERED: OXYTOCIN/NORMAL SALINE 20 UNIT/1,000 ML RTUINJ IV PRN ×2 (14:42→15:20)
[2017-06-03] MEDS ORDERED: FENTANYL/BUPIVACAINE/NS/PF 100 ML EPI PRN (14:44)
[2017-06-03] MEDS ORDERED: BUPIVACAINE HCL 0.25 % INJ/PF (2.5 MG/1 ML) 30 ML VIAL INFIL PRN (14:44)
[2017-06-03] MEDS ORDERED: BENZOIN/ALOE VERA/STORAX/TOLU TINCTURE 60 ML TP PRN (14:44)
[2017-06-03] MEDS ORDERED: EPHEDRINE SULFATE INJ 50 MG/1 ML AMPULE IV PRN (14:44)
[2017-06-03] MEDS ORDERED: LIDOCAINE 1% INJ-PF (10 MG/ML) 30 ML SDV ONE (14:50)
[2017-06-03] MEDS ORDERED: MISOPROSTOL 0.2 MG TABLET ONE (14:50)
[2017-06-03] MEDS ORDERED: OXYTOCIN/NORMAL SALINE 20 UNIT/1,000 ML RTUINJ ONE (14:50)
[2017-06-03] MEDS ORDERED: FENTANYL/BUPIVACAINE/NS/PF 200 MCG/100 ML RTUINJ EPI PRN (15:10)
--- NOTE | 2017-06-03 15:14 | Admission Physical ---
Datetime Report Generated by CPN: 06/03/2017 15:14 CURRENT ADMISSION Hx Assessment: The History has been Reviewed and is Current Chief Complaint: Uterine Contractions; Suspected Ruptured Membranes Chief Complaint: Illness Chief Complaint Other: Flu like symptoms Indication for Induction: Not Applicable Indication for Induction: Not Applicable Indication for Induction: Term, Intrauterine Indication for Induction: , Intrauterine ; No Active Labor; Intact Membranes; Observation/Evaluation Admit Plan: Admit to Unit; Initiate Labor Protocol Admit Plan: Observation/Evaluation ALLERGIES Medication Allergies: Yes Medication Allergies: Opioids - Morphine Analogues (06/03/2017); penicillin V/MO (06/03/2017) Medication Allergies: Opioids - Morphine Analogues (05/15/2017); penicillin V/MO (05/15/2017) Medication Allergies: Opioids - Morphine Analogues (10/30/2016); penicillin V/MO (10/30/2016) Latex: No Latex Allergies Food Allergies: N/A Environmental Allergies: N/A OBSTETRICAL HISTORY EDC: 06/06/2017 00:00 : 4 Para: 3 Term: 3 : 0 SAB: 0 IAB: 0 Ectopic: 0 Livin Cesareans: 0 VBACs: 0 Multiple Births: 0 Gestational Diabetes: No Rh Sensitization: No Incompetent Cervix: No MARISA: No Infertility: No ART Treatment: No Uterine Anomaly: No IUGR: No Hx Previous C/S: No Macrosomia: No Hx Loss/Stillborn: No PIH: No Hx : No Placenta Previa/Abruption: No Depression/PP Depression: Yes PTL/PROM: No Post Hemorrhage: No Current Procedures: Ultrasound; NST Obstetrical History Comments: G1: G2: G3: 2016- G4: current SEE RECORDS Alcohol: No Marijuana : Yes Marijuana Frequency: 3 - 5 Times Per Week Last Used: 05/14/2017 00:00 Previous Treatment: None Cocaine: No Other Illicit Drugs: No Cigarettes: Never Smoker. 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: No Heart Disease: No Hosp/Surgery: Yes Autoimmune Disorder: No Anesthetic Complications: No Kidney Disease: No Abnormal Pap Smear: No Neuro/Epilepsy: No Psychiatric Disorders: Yes Other Medical Diseases: No Hepatitis/Liver Disease: No Significant Family History: No Varicosities/Phlebitis: No Trauma/Violence : No Thyroid Dysfunction: No Medical History Comments: broken nose x3, manic anxiety and severe panic disorder, asthma INFECTIOUS HISTORY Gonorrhea: No Genital Herpes: No Chlamydia: No Tuberculosis: No Syphilis: No Hepatitis: No HIV/AIDS Exposure: No Rash or Viral Illness: No HPV: No PHYSICAL EXAM General: Normal General: Normal HEENT: Normal HEENT: Normal Neurologic: Normal Neurologic: Normal Thyroid: Normal Thyroid: Deferred Heart: Normal Heart: Normal Lungs: Normal Lungs: Normal Breast: Normal Breast: Normal Back: Normal Back: Normal Abdomen: Normal Abdomen: Normal Genitourinary Exam: Normal Genitourinary Exam: Normal Extremities: Normal Extremities: Normal DTRs: Normal DTRs: Normal Pelvic Type: Adequate Pelvic Type: Adequate Vital Signs: Reviewed Vital Signs: Reviewed VAGINAL EXAM Dilatation: 10 Effacement: 100 Station: 4 MEMBRANES Pooling: Positive Membranes: Ruptured Membranes: Intact Amniotic Fluid Color: Meconium, Heavy FETUS A EGA: 39.4 EGA: 37.0 Monitoring: External US Monitoring: External US FHR- Baseline: 145 FHR- Baseline: 170 Variability: Moderate 6-25bpm Variability: Moderate 6-25bpm Accelerations: 15X15 Accelerations: 15X15 Decelerations: None FHR Category: Category II FHR Category: Category II FHR Comments: tachycardia @ time of Estimated Weight (gm): 3900 Presentation: Vertex Admit Comment: presents with fever and body aches very limited care hx X3 at term. tachycardia ->resolved bpp 4/8, alejandro 2.7-> is now 6.4, nst now reactive hx asthma, psych disorder, ovarian cyst, abn pap, + gc/c/+ trich Observation tylenol, abx. PLANS FOR LABOR AND DELIVERY Labor and Delivery: None Pain Management: Epidural Feeding Preference: Formula Benefit of Breast Feed Discussed: Yes Circumcision: N/A INFORMED CONSENT Assignment: Christiano Benson MD Signature: with User ID: [email or web address] Signature: with User ID: [email or web address] : with User ID: [email or web address] : with User ID: [email or web address]
[2017-06-03] MEDS ORDERED: MEASLES,MUMPS&RUBELLA VACC/PF 0.5 ML VIAL SUBCUT PRN (15:20)
[2017-06-03] MEDS ORDERED: MAGNESIUM HYDROXIDE SUSP 30 ML UDCUP PO PRN (15:20)
[2017-06-03] MEDS ORDERED: PSEUDOEPHEDRINE HCL 30 MG TABLET PO PRN (15:20)
[2017-06-03] MEDS ORDERED: NA PHOS,M-B/NA PHOS,DI-BA (ADULT) 133 ML ENEMA PR PRN (15:20)
[2017-06-03] MEDS ORDERED: ZOLPIDEM TARTRATE 5 MG TABLET PO PRN (15:20)
[2017-06-03] MEDS ORDERED: ACETAMINOPHEN 650 MG SUPP.RECT PR PRN (15:20)
[2017-06-03] MEDS ORDERED: PROMETHAZINE HCL 25 MG SUPP.RECT PR PRN (15:20)
[2017-06-03] MEDS ORDERED: BENZOCAINE/MENTHOL AEROSOL SPRAY 56 ML TOP PRN (15:20)
[2017-06-03] MEDS ORDERED: GLYCERIN/WITCH HAZEL LEAF 1 EACH MED..PAD TP PRN (15:20)
[2017-06-03] MEDS ORDERED: ACETAMINOPHEN WITH CODEINE #3 TABLET PO PRN ×2 (15:20)
[2017-06-03] MEDS ORDERED: PROMETHAZINE HCL 25 MG TABLET PO PRN (15:20)
[2017-06-03] MEDS ORDERED: DIPHENHYDRAMINE HCL 25 MG CAPSULE PO PRN (15:20)
[2017-06-03] MEDS ORDERED: DIBUCAINE 1% OINTMENT 28 GM TP PRN (15:20)
[2017-06-03] MEDS ORDERED: DIPH/PERTUSS(ACELL)/TETANUS VAC/PF 0.5 ML SYR (>=10YO) IM PRN (15:20)
[2017-06-03] MEDS ORDERED: PROMETHAZINE HCL INJ 25 MG/1 ML VIAL IV PRN (15:20)
[2017-06-03] MEDS ORDERED: IBUPROFEN 800 MG TABLET ONE (15:21)
[2017-06-03 15:57] LABS: ABSOLUTE LYMPHOCYTES (AUTO) 1.3 10^3/uL (0.5-4.7); ABSOLUTE MONOCYTES (AUTO) 0.7 10^3/uL (0.1-1.4); ABSOLUTE NEUT (AUTO) 8.9 10^3/uL (1.7-8.2); BASOPHILS % (AUTO) 0.4 % (0-2); EOSINOPHILS % (AUTO) 0.3 % (0-6); HEMATOCRIT 34.3 % (36.0-47.0); HEMOGLOBIN 11.4 g/dL (12.0-15.5); LYMPHOCYTES % (AUTO) 11.5 % (13-45); MEAN CORPUSCULAR HEMOGLOBIN 28.1 pg (27.0-33.4); MEAN CORPUSCULAR HGB CONC 33.2 g/dL (32.0-36.0); MEAN CORPUSCULAR VOLUME 85 fl (80-97); MONOCYTES % (AUTO) 6.1 % (3-13); PLATELET COUNT 350 10^3/uL (150-450); RED BLOOD COUNT 4.05 10^6/uL (3.72-5.28); RED CELL DISTRIBUTION WIDTH 14.6 % (11.5-14.0); SEGMENTED NEUTROPHILS % (AUTO) 81.7 % (42-78); TOTAL CELLS COUNTED % (AUTO) 100 %; WHITE BLOOD COUNT 10.9 10^3/uL (4.0-10.5)
[2017-06-03 16:15] LABS: ALANINE AMINOTRANSFERASE 19 U/L (9-52); ALBUMIN 3.2 g/dL (3.5-5.0); ALKALINE PHOSPHATASE 89 U/L (38-126); ANION GAP 9 (5-19); ASPARTATE AMINO TRANSFERASE 13 U/L (14-36); BILIRUBIN,DIRECT 0.2 mg/dL (0.0-0.4); BILIRUBIN,TOTAL 0.2 mg/dL (0.2-1.3); BLOOD UREA NITROGEN 8 mg/dL (7-20); CARBON DIOXIDE 21 mmol/L (22-30); CHLORIDE 111 mmol/L (98-107); GLUCOSE 104 mg/dL (75-110); LDH 321 U/L (313-618); POTASSIUM 3.5 mmol/L (3.6-5.0); SODIUM 140.6 mmol/L (137-145); TOTAL PROTEIN 6.4 g/dL (6.3-8.2); URIC ACID 3.9 mg/dL (2.5-6.2)
--- NOTE | 2017-06-03 16:23 | Warning Signs in Babies ---
VOD Warning Signs Datetime Report Generated by [facility]: 06/03/2017 16:22 VOD#608 -Warning Signs in Babies: Viewed with Parent(s)/Family (05/13/2017 11:07:Lisandra Springer RN)
--- NOTE | 2017-06-03 16:26 | Delivery Summary ---
Del Sum A-C Datetime Report Generated by CPN: 06/03/2017 16:25 DELIVERY PERSONNEL DELIVERY PERSONNEL: [id number] Delivery Doctor:: Jolene Gurrola MD Labor and Delivery Nurse:: Lisandra Springer RNfuel cell engineer Nurse:: Lisandra Villegas RN Supervisor Cooler Service/[employer]RAWLER [employer]CH: Marissa Kemp PROFESSIONAL NURSE Additional Personnel: : Melida Robles RN MATERNAL INFORMATION Delivery Anesthesia: None Medications After Delivery: Pitocin Bolus-Please Comment; Pitocin Drip 20 Units/1000ml NSS Estimated Blood Loss (ml): 150 Maternal Complications: Precipitous Labor (<3hrs) LABOR SUMMARY EDC: 06/06/2017 00:00 No. Babies in Womb: 1 Attempted: No Labor Anesthesia: None LABOR INFORMATION Reason for Induction: Not Applicable Onset of Labor: 06/03/2017 07:30 Complete Dilatation: 06/03/2017 14:55 Oxytocin: N/A Group B Beta Strep: negative Antibiotics # of Doses: 0 Steroids Given: None Reason Steroids Not Administered: Not Applicable MEMBRANES Membranes Rupture Method: Spontaneous Rupture of Membranes: 06/03/2017 14:37 Length of Rupture (hr): 0.33 Amniotic Fluid Color: Moderate Meconium Amniotic Fluid Amount: Small Amniotic Fluid Odor: Normal STAGES OF LABOR Stage 1 hr: 7 Stage 1 min: 25 Stage 2 hr: 0 Stage 2 min: 2 Stage 3 hr: 0 Stage 3 min: 6 Total Time in Labor hr: 7 Total Time in Labor min: 33 VAGINAL DELIVERY Episiotomy: None Laceration #1: None Laceration Extension #1: N/A Laceration Repair: Not Applicable CSECTION DELIVERY Primary Indication: N/A Secondary Indication: N/A CSection Incidence: N/A Labor: N/A Elective: N/A CSection Incision: N/A BABY A INFORMATION Delivery Date/Time: 06/03/2017 14:57 Method of Delivery: Vaginal Born in Route : No : N/A Forceps: N/A Vacuum Extraction: N/A Shoulder Dystocia : No PRESENTATION/POSITION BABY A Presentation: Cephalic Cephalic Presentation: Vertex Vertex Position: Right Occipital Anterior Breech Presentation: N/A PLACENTA INFORMATION BABY A Placenta Delivery Time : 06/03/2017 15:03 Placenta Method of Delivery: Spontaneous Placenta Status: Delivered SCORES BABY A Heart Rate 1 min: >100 bpm Resp Effort 1 min: Good Cry Reflex Irritability 1 min: Cough or Sneeze or Pulls Away Muscle Tone 1 min: Active Motion Color 1 min: Body [place], Extremities Blue Resuscitation Effort 1 min: Tactile Stimulation SCORE 1 MIN: 9 Heart Rate 5 min: >100 bpm Resp Effort 5 min: Good Cry Reflex Irritability 5 min: Cough or Sneeze or Pulls Away Muscle Tone 5 min: Active Motion Color 5 min: Body [place], Extremities Blue Resuscitation Effort 5 min: Tactile Stimulation SCORE 5 MIN: 9 INFANT INFORMATION BABY A Gestational Age at Delivery: 39.4 Gestational Status: Full Term- 39- 40.6 Weeks Outcome : Liveborn Condition : Stable Sex: Female IDENTIFICATION BABY A Verification Date/Time: 06/03/2017 15:57 ID Band Number: [id number] Mother's Name Verified: Yes RN Verifying : A Springer RN B Baidy RN WEIGHT/LENGTH BABY A Infant Birthweight (gm): 2760 Infant Weight (lb): 6 Weight (oz): 1 Length (in): 19.75 Infant Length (cm): 50.17 CORD INFORMATION BABY A No. Cord Vessels: 3 Nuchal Cord : N/A Nuchal Cord- Other: body cord Suction: Mouth; Nose ASSESSMENT BABY A Complications: Meconium Physical Findings at Delivery: Within Normal Limits Respirations: Appears Normal Skin to Skin: Yes Skin to Skin Time (min): 60 Computer Software Engineer/ALS Called : No Infant Care By: B Baidy RN Transferred To: Remains with Mother BABY B INFORMATION : N/A SIGNATURES Signature: with User ID: [email or web address]
[2017-06-03 17:11] LABS: APPEARANCE,URINE CLOUDY; BILIRUBIN,URINE NEGATIVE (NEGATIVE); GLUCOSE, URINE 50 mg/dL (NEGATIVE); KETONES,URINE NEGATIVE (NEGATIVE); LEUKOCYTE ESTERASE,URINE TRACE (NEGATIVE); NITRITE,URINE NEGATIVE (NEGATIVE); PROTEIN,URINE 100 mg/dL (NEGATIVE); URINE SPECIFIC GRAVITY 1.035; UROBILINOGEN,URINE NEGATIVE mg/dL (<2.0)
[2017-06-03 17:20] LABS: COLOR,URINE YELLOW
[2017-06-03 17:41] LABS: URINE AMPHETAMINES SCREEN NEGATIVE; URINE BARBITURATES SCREEN NEGATIVE; URINE BENZODIAZEPINES SCREEN NEGATIVE; URINE COCAINE SCREEN NEGATIVE; URINE METHADONE SCREEN NEGATIVE; URINE PHENCYCLIDINE SCREEN NEGATIVE
[2017-06-03 17:47] LABS: URINE MARIJUANA (THC) SCREEN UNCONFIRMED POSITIVE
[2017-06-03] MEDS: FERROUS SULFATE 325 MG TABLET PO SCH (18:23)
[2017-06-03] MEDS: DOCUSATE SODIUM 100 MG CAPSULE PO SCH (18:23)
[2017-06-03] MEDS: IBUPROFEN 800 MG TABLET PO SCH (22:11)
[2017-06-03] MEDS: FAMOTIDINE 20 MG TABLET PO SCH (22:11)
[2017-06-04] MEDS: IBUPROFEN 800 MG TABLET PO SCH ×3 (05:41→21:05)
[2017-06-04 08:03] LABS: HEMATOCRIT 29.8 % (36.0-47.0); MEAN CORPUSCULAR HEMOGLOBIN 28.3 pg (27.0-33.4); MEAN CORPUSCULAR HGB CONC 33.5 g/dL (32.0-36.0); MEAN CORPUSCULAR VOLUME 85 fl (80-97); PLATELET COUNT 298 10^3/uL (150-450); RED BLOOD COUNT 3.52 10^6/uL (3.72-5.28); RED CELL DISTRIBUTION WIDTH 14.7 % (11.5-14.0); WHITE BLOOD COUNT 7.1 10^3/uL (4.0-10.5)
--- NOTE | 2017-06-04 08:24 | PDOC PROGRESS REPORT ---
Subjective-OB Progress Note for:: 06/04/17 Subjective: Day #1, s/p Pt doing well, denies concerns, states lochia is stable, pain well controlled, voiding without difficulty. Physical Exam (OB) Vital Signs: Temp Pulse Resp BP Pulse Ox 98.4 F 69 137/89 H 99 06/03/17 17:16 06/03/17 17:16 06/03/17 17:16 06/03/17 17:16 Intake & Output 06/03/17 06/04/17 06/05/17 05:59 06:59 06:59 Intake Total Balance Weight - PIH/Pre-Eclampsia DTR's: 2 + Clonus: Negative Headache: Absent Epigastric Pain: No Visual Changes: No - Lochia Lochia Amount: Scant < 10 ml Lochia Color: Rubra/Red - Abdomen Description: Soft Hernia Present: No Fundal Description: Firm, Midline Fundal Height: u/u - u/2 Objective-Diagnostic Laboratory: 06/04/17 07:20 06/03/17 15:44 06/03/17 06/03/17 06/03/17 15:44 15:44 15:44 WBC 10.9 H RBC 4.05 Hgb 11.4 L Hct 34.3 L MCV 85 MCH 28.1 MCHC 33.2 RDW 14.6 H Plt Count 350 Seg Neutrophils % 81.7 H Lymphocytes % 11.5 L Monocytes % 6.1 Eosinophils % 0.3 Basophils % 0.4 Absolute Neutrophils 8.9 H Absolute Lymphocytes 1.3 Absolute Monocytes 0.7 Absolute Eosinophils 0.0 Absolute Basophils 0.0 Sodium 140.6 Potassium 3.5 L Chloride 111 H Carbon Dioxide 21 L Anion Gap 9 BUN 8 Creatinine 0.49 L Est GFR ( Amer) > 60 Est GFR (Non-Af Amer) > 60 Glucose 104 Uric Acid 3.9 Calcium 8.0 L Total Bilirubin 0.2 AST 13 L ALT 19 Alkaline Phosphatase 89 Total Protein 6.4 Albumin 3.2 L Urine Color Urine Appearance Urine pH Ur Specific Docena Urine Protein Urine Glucose (UA) Urine Ketones Urine Blood Urine Nitrite Ur Leukocyte Esterase Blood Type A NEGATIVE Antibody Screen POSITIVE 06/03/17 06/04/17 17:00 07:20 WBC 7.1 RBC 3.52 L Hgb 10.0 L Hct 29.8 L MCV 85 MCH 28.3 MCHC 33.5 RDW 14.7 H Plt Count 298 Seg Neutrophils % Lymphocytes % Monocytes % Eosinophils % Basophils % Absolute Neutrophils Absolute Lymphocytes Absolute Monocytes Absolute Eosinophils Absolute Basophils Sodium Potassium Chloride Carbon Dioxide Anion Gap BUN Creatinine Est GFR ( Amer) Est GFR (Non-Af Amer) Glucose Uric Acid Calcium Total Bilirubin AST ALT Alkaline Phosphatase Total Protein Albumin Urine Color YELLOW Urine Appearance CLOUDY Urine pH 5.0 Ur Specific Docena 1.035 Urine Protein 100 H Urine Glucose (UA) 50 H Urine Ketones NEGATIVE Urine Blood LARGE H Urine Nitrite NEGATIVE Ur Leukocyte Esterase TRACE H Blood Type Antibody Screen Assessment and Plan(PN) - Assessment and Plan (1) Vaginal delivery Is this a current diagnosis for this admission?: Yes Plan: routine pp care - Time Spent with Patient Time with patient: Less than 15 minutes Critical Time spent with patient: Less than 15 minutes Medications reviewed and adjusted accordingly: Yes - Disposition Anticipated Discharge: Home Within: within 24 hours
[2017-06-04] MEDS: PRENATAL VITAMIN W DHA CAPSULE PO SCH (11:07)
[2017-06-04] MEDS: FAMOTIDINE 20 MG TABLET PO SCH ×2 (11:07→21:06)
[2017-06-04] MEDS: FERROUS SULFATE 325 MG TABLET PO SCH ×2 (11:07→17:43)
[2017-06-04] MEDS: SENNOSIDES/DOCUSATE 8.6-50 MG 1 EACH TABLET PO SCH (11:07)
[2017-06-04] MEDS: DOCUSATE SODIUM 100 MG CAPSULE PO SCH ×2 (11:09→17:43)
--- NOTE | 2017-06-04 22:56 | Admission Physical ---
Datetime Report Generated by CPN: 06/04/2017 22:55 CURRENT ADMISSION Chief Complaint: Uterine Contractions; Suspected Ruptured Membranes Indication for Induction: Not Applicable Indication for Induction: Term, Intrauterine Admit Plan: Admit to Unit; Initiate Labor Protocol ALLERGIES Medication Allergies: Opioids - Morphine Analogues (06/03/2017); penicillin V/MO (06/03/2017) Latex: No Latex Allergies INFECTIOUS HISTORY Infectious History Comments: trich PHYSICAL EXAM General: Normal HEENT: Normal Neurologic: Normal Thyroid: Normal Heart: Normal Lungs: Normal Breast: Normal Back: Normal Abdomen: Normal Genitourinary Exam: Normal Extremities: Normal DTRs: Normal Pelvic Type: Adequate Vital Signs: Reviewed VAGINAL EXAM Dilatation: 10 Effacement: 100 Station: 4 MEMBRANES Pooling: Positive Membranes: Ruptured Amniotic Fluid Color: Meconium, Heavy FETUS A EGA: 39.4 EGA: 37.0 Monitoring: External US FHR- Baseline: 145 Variability: Moderate 6-25bpm Accelerations: 15X15 Decelerations: None FHR Category: Category II Estimated Weight (gm): 3900 Presentation: Vertex INFORMED CONSENT Signature: with User ID: [email or web address]
[2017-06-05] MEDS: IBUPROFEN 800 MG TABLET PO SCH (06:07)
[2017-06-05] MEDS: PRENATAL VITAMIN W DHA CAPSULE PO SCH (10:10)
[2017-06-05] MEDS: SENNOSIDES/DOCUSATE 8.6-50 MG 1 EACH TABLET PO SCH (10:11)
[2017-06-05] MEDS: FERROUS SULFATE 325 MG TABLET PO SCH (10:11)
[2017-06-05] MEDS: FAMOTIDINE 20 MG TABLET PO SCH (10:11)
[2017-06-05] MEDS: DOCUSATE SODIUM 100 MG CAPSULE PO SCH (10:11)
--- NOTE | 2017-06-05 11:26 | PDOC DISCHARGE SUMMARY ---
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 Is this a current diagnosis for this admission?: Yes Discharge Data - Discharge Medication Prescriptions: Ibuprofen [Motrin 800 mg Tablet] 800 mg PO Q8HP PRN #60 tablet PRN Reason: Docusate Sodium [Colace 100 mg Capsule] 100 mg PO BID #60 capsule Ferrous Sulfate [Feosol 325 mg Tablet] 325 mg PO BID #60 tablet Vit/Dha [ Multi + Dha Capsule] 1 cap PO DAILY #60 capsule Home Medications: Docusate Sodium [Colace 100 mg Capsule] 100 mg PO BID #60 capsule 06/05/17 Ferrous Sulfate [Feosol 325 mg Tablet] 325 mg PO BID #60 tablet 06/05/17 Ibuprofen [Motrin 800 mg Tablet] 800 mg PO Q8HP PRN #60 tablet 06/05/17 Vit/Dha [ Multi + Dha Capsule] 1 cap PO DAILY #60 capsule 06/05 Reason(s) for Admission: Onset of Labor Procedures: Ultrasound Intrapartum Procedure(s): Spontaneous Vaginal Delivery - Diagnosis Test Laboratory: Temp Pulse Resp BP Pulse Ox 97.6 F 54 L 16 139/78 H 99 06/05/17 04:30 06/05/17 04:30 06/05/17 04:30 06/05/17 04:30 06/05/17 04:30 06/03/17 06/03/17 06/04/17 15:44 17:00 07:20 RBC 4.05 3.52 L Hgb 11.4 L 10.0 L Hct 34.3 L 29.8 L Urine Opiates Screen NEGATIVE - Discharge information/Instructions Discharge Activity: Activity As Tolerated, Balance Activity w/Rest, No Lifting Over 10 Pounds, Pelvic Rest, No tub bath, Walk Frequently Discharge Diet: Regular Disposition: HOME, SELF-CARE Follow up with: [facility] in: 4, Days - blood pressure check
[2017-06-05 12:00] VITALS: BP 139/78
== END 2017-06-05 13:14 | disposition home or self-care (01) | DRG 775 ==
LOC: LC 14:10 → LR 15:10 → 2S 17:10
PROVIDERS: ADMIT Obstetrics & Gynecology; ATTEND Obstetrics & Gynecology
PROC: 10E0XZZ Delivery of Products of Conception, External Approach (ICD-10-PCS; principal; 2017-06-05)
PROC: 4A1HXCZ Monitoring of Products of Conception, Cardiac Rate, External Approach (ICD-10-PCS; 2017-06-05)
PROC: 3E0234Z Introduction of Serum, Toxoid and Vaccine into Muscle, Percutaneous Approach (ICD-10-PCS; 2017-06-05)
DX: O77.0 Labor and delivery complicated by meconium in amniotic fluid (principal); O99.324 Drug use complicating childbirth; O62.3 Precipitate labor; O69.89X0 Labor and delivery complicated by other cord complications, not applicable or unspecified; F12.90 Cannabis use, unspecified, uncomplicated; O26.893 Other specified pregnancy related conditions, third trimester; Z3A.39 39 weeks gestation of pregnancy; Z67.11 Type A blood, Rh negative; Z88.5 Allergy status to narcotic agent; Z37.0 Single live birth
CPT/HCPCS: 36415; 80053; 80307; 81005; 83615; 84550; 85025; 85027; 85461; 86592; 86850; 86870; 86900; 86901; J2590; J2790; J3490

== ENCOUNTER 2018-02-25 13:45 | Emergency (ER) | payer MEDICAID ==
--- NOTE | 2018-02-25 14:18 | ER Document Report ---
ED Medical Screen (RME) - General Chief Complaint: Abdominal Pain Stated Complaint: ABDOMINAL PAIN Time Seen by Provider: 02/25/18 14:11 Notes: Patient is a 32-year-old female that presents to the emergency department for chief complaint of pelvic pain for 2 weeks. Complains of having some discharge , and chills, she does have the Mirena IUD. She has not been sexually active for several months. Denies any urinary complaints. Pain seemed to be relieved with Motrin, but then it came back so she decided to come to the ED. ROS: Other than noted above, the 12 point review of systems was reviewed with the patient and were negative, all pertinent findings are included in the HPI. PHYSICAL EXAMINATION: Vital signs reviewed. GENERAL: Well-appearing, well-nourished and in no acute distress. HEAD: Atraumatic, normocephalic. EYES: Pupils equal round extraocular movements intact, conjunctiva are normal. ENT: Nares patent NECK: Normal range of motion CV: Heart regular rate and rhythm LUNGS: No respiratory distress Musculoskeletal: Normal range of motion NEUROLOGICAL: Normal speech PSYCH: Normal mood, normal affect. MDM: Patient seen and examined for rapid initial assessment. Vital signs reviewed. A comprehensive ED assessment and evaluation of the patient, analysis of test results and completion of the medical decision making process will be conducted by additional ED providers. *Note is created using voice recognition software and may contain spelling, syntax or grammatical errors. TRAVEL OUTSIDE OF THE [place] IN LAST 30 DAYS: No - Related Data Allergies/Adverse Reactions: penicillin V [Penicillin V] Allergy (Intermediate, Verified 06/03/17 14:32) Opioids - Morphine Analogues Allergy (Verified 06/03/17 14:32) Past Medical History - Social History Chew tobacco use (# tins/day): No Frequency of alcohol use: Occasional Drug Abuse: Marijuana Pulmonary Medical History: Reports: Hx Asthma Endocrine Medical History: Reports: Hx Diabetes Mellitus Type 2 - gestational DM Renal/ Medical History: Reports: Hx Pelvic Inflammatory Disease. Denies: Hx Peritoneal Dialysis Psychiatric Medical History: Reports: Hx Anxiety, Hx Bipolar Disorder - Immunizations Hx Diphtheria, Pertussis, Tetanus Vaccination: Yes History of Influenza Vaccine for 12/2016 - 05/2017 Season: No Physical Exam - Vital signs Vitals: Temp Pulse Resp BP Pulse Ox 98.7 F 95 15 120/88 H 99 02/25/18 14:06 02/25/18 14:06 02/25/18 14:06 02/25/18 14:06 02/25/18 14:06 Course - Vital Signs Vital signs: Temp Pulse Resp BP Pulse Ox 98.7 F 95 15 120/88 H 99 02/25/18 14:06 02/25/18 14:06 02/25/18 14:06 02/25/18 14:06 02/25/18 14:06
[2018-02-25] MEDS ORDERED: NORMAL SALINE 1000 ML 1,000 ML IV ONE (14:20)
[2018-02-25] MEDS ORDERED: KETOROLAC TROMETHAMINE INJ/PF 30 MG/1 ML SDV IV ONE (14:20)
--- NOTE | 2018-02-25 14:56 | ER Document Report ---
ED GI/ - General Chief Complaint: Abdominal Pain Stated Complaint: ABDOMINAL PAIN Time Seen by Provider: 02/25/18 14:11 Mode of Arrival: Ambulatory Information source: Patient Notes: Patient presents complaining of lower pelvic pain with vaginal discharge for the past 2 weeks. Patient states she did have some recent vaginal spotting and chills. Patient denies any urinary symptoms. Patient denies any intercourse for several months and denies any concerns about sexually transmitted infection. TRAVEL OUTSIDE OF THE [place] IN LAST 30 DAYS: No - HPI Patient complains to provider of: Pelvic pain, Vaginal discharge Onset: Other - 2 weeks Timing/Duration: Worse Quality of pain: Sharp Pain Level: 4 Location: Pelvis Vaginal bleeding (Compared to normal period): Spotting Menstrual period history: denies: Associated symptoms: Chills, Vaginal discharge. denies: Diarrhea, Fever, Nausea , Urinary hesitancy, Urinary frequency, Urinary retention, Vomiting Exacerbated by: Denies Relieved by: Denies Similar symptoms previously: No Recently seen / treated by doctor: No - Related Data Allergies/Adverse Reactions: penicillin V [Penicillin V] Allergy (Intermediate, Verified 06/03/17 14:32) Opioids - Morphine Analogues Allergy (Verified 06/03/17 14:32) Past Medical History - General Information source: Patient - Social History Smoking Status: Never Smoker Chew tobacco use (# tins/day): No Frequency of alcohol use: None Drug Abuse: Marijuana Occupation: None Lives with: Family Family History: Reviewed & Not Pertinent Patient has suicidal ideation: No Patient has homicidal ideation: No Pulmonary Medical History: Reports: Hx Asthma Endocrine Medical History: Reports: Hx Diabetes Mellitus Type 2 - gestational DM Renal/ Medical History: Reports: Hx Pelvic Inflammatory Disease. Denies: Hx Peritoneal Dialysis Psychiatric Medical History: Reports: Hx Anxiety, Hx Post Traumatic Stress Disorder Surgical Hx: Negative - Immunizations Hx Diphtheria, Pertussis, Tetanus Vaccination: Yes Review of Systems - Review of Systems Constitutional: Chills. denies: Fever EENT: No symptoms reported Cardiovascular: No symptoms reported. denies: Chest pain Respiratory: No symptoms reported. denies: Cough, Short of breath Gastrointestinal: Abdominal pain. denies: Diarrhea, Nausea, Vomiting Genitourinary: No symptoms reported. denies: Dysuria Female Genitourinary: Vaginal discharge, Vaginal bleeding Musculoskeletal: No symptoms reported. denies: Back pain Skin: No symptoms reported Hematologic/Lymphatic: No symptoms reported Neurological/Psychological: No symptoms reported Physical Exam - Vital signs Vitals: Temp Pulse Resp BP Pulse Ox 98.7 F 95 15 120/88 H 99 02/25/18 14:06 02/25/18 14:06 02/25/18 14:06 02/25/18 14:06 02/25/18 14:06 - General General appearance: Appears well, Alert In distress: None - HEENT Head: Normocephalic, Atraumatic Eyes: Normal Conjunctiva: Normal Nasal: Normal Mouth/Lips: Normal Mucous membranes: Normal Neck: Normal, Supple. No: Lymphadenopathy - Respiratory Respiratory status: No respiratory distress Chest status: Nontender Breath sounds: Normal. No: Rales, Rhonchi, Stridor, Wheezing Chest palpation: Normal - Cardiovascular Rhythm: Regular Heart sounds: S1 appreciated, S2 appreciated Murmur: No - Abdominal Inspection: Normal Distension: No distension Bowel sounds: Normal Tenderness: Tender - lower pelvic Organomegaly: No organomegaly - Genitourinary External exam: Normal Speculum exam: Cervix closed, Vaginal discharge Vaginal bleeding: None Bimanuel exam: Cervical motion tender. No: Adnexal tenderness Notes: pct anderia as standby - Back Back: Tender - Lower lumbar paraspinal. No: CVA tenderness, Vertebra tenderness - Extremities General upper extremity: Normal inspection, Normal ROM General lower extremity: Normal inspection, Normal ROM - Neurological Neuro grossly intact: Yes Cognition: Normal Sarah Coma Scale Eye Opening: Spontaneous [place] Coma Scale Verbal: Oriented Sarah Coma Scale Motor: Obeys Commands [place] Coma Scale Total: 15 - Psychological Associated symptoms: Normal affect, Normal mood - Skin Skin Temperature: Warm Skin Moisture: Dry Skin Color: Normal Course - Re-evaluation Re-evalutation: 02/25/18 17:[address] Lin who recommends consultation with associate media planner. Consulted with Dr. Gurrola who is on-call for DIRECTOR OF UNDERGRADUATE ADMISSIONS who recommends having patient follow-up in the office this week agrees with plan to start her on doxycycline and Rocephin. Does not recommend having the IUD removed at this time. - Vital Signs Vital signs: Temp Pulse Resp BP Pulse Ox 99.4 F 79 16 131/98 H 100 02/25/18 18:18 02/25/18 18:18 02/25/18 18:18 02/25/18 18:18 02/25/18 18:18 - Laboratory Result Diagrams: 02/25/18 14:30 02/25/18 14:30 Laboratory results interpreted by me: 02/25/18 02/25/18 14:30 16:15 Urine Protein 30 H Chlamydia DNA (PCR) DETECTED H N.gonorrhoeae DNA (PCR) DETECTED H Labs- Entire Visit 02/25/18 02/25/18 02/25/18 14:30 14:30 14:30 WBC 6.8 RBC 4.88 Hgb 14.6 Hct 41.4 MCV 85 MCH 30.0 MCHC 35.3 RDW 13.4 Plt Count 215 Seg Neutrophils % 71.5 Lymphocytes % 18.0 Monocytes % 8.8 Eosinophils % 1.3 Basophils % 0.4 Absolute Neutrophils 4.9 Absolute Lymphocytes 1.2 Absolute Monocytes 0.6 Absolute Eosinophils 0.1 Absolute Basophils 0.0 Sodium 143.7 Potassium 3.7 Chloride 103 Carbon Dioxide 29 Anion Gap 12 BUN 9 Creatinine 0.60 Est GFR ( Amer) > 60 Est GFR (Non-Af Amer) > 60 Glucose 91 Calcium 9.1 Total Bilirubin 0.5 Direct Bilirubin 0.2 Neonat Total Bilirubin Not Reportable Neonat Direct Bilirubin Not Reportable Neonat Indirect Bili Not Reportable AST 28 ALT 33 Alkaline Phosphatase 101 Total Protein 7.3 Albumin 4.1 Lipase 23.7 Urine Color YELLOW Urine Appearance CLEAR Urine pH 5.0 Ur Specific [place] 1.021 Urine Protein 30 H Urine Glucose (UA) NEGATIVE Urine Ketones NEGATIVE Urine Blood NEGATIVE Urine Nitrite NEGATIVE Urine Bilirubin NEGATIVE Urine Urobilinogen NEGATIVE Ur Leukocyte Esterase NEGATIVE Urine WBC (Auto) 3 Urine RBC (Auto) 1 U Hyaline Cast (Auto) 1 Squamous Epi Cells Auto 1 Urine Mucus (Auto) FEW Urine Ascorbic Acid NEGATIVE Urine HCG, Qual NEGATIVE Bacteria (Wet Prep) Trichomonas (Wet Prep) Vaginal WBC Vaginal RBC Vaginal Yeast Chlamydia DNA (PCR) N.gonorrhoeae DNA (PCR) 02/25/18 02/25/18 02/25/18 16:15 16:15 16:15 WBC RBC Hgb Hct MCV MCH MCHC RDW Plt Count Seg Neutrophils % Lymphocytes % Monocytes % Eosinophils % Basophils % Absolute Neutrophils Absolute Lymphocytes Absolute Monocytes Absolute Eosinophils Absolute Basophils Sodium Potassium Chloride Carbon Dioxide Anion Gap BUN Creatinine Est GFR ( Amer) Est GFR (Non-Af Amer) Glucose Calcium Total Bilirubin Direct Bilirubin Neonat Total Bilirubin Neonat Direct Bilirubin Neonat Indirect Bili AST ALT Alkaline Phosphatase Total Protein Albumin Lipase Urine Color Urine Appearance Urine pH Ur Specific [place] Urine Protein Urine Glucose (UA) Urine Ketones Urine Blood Urine Nitrite Urine Bilirubin Urine Urobilinogen Ur Leukocyte Esterase Urine WBC (Auto) Urine RBC (Auto) U Hyaline Cast (Auto) Squamous Epi Cells Auto Urine Mucus (Auto) Urine Ascorbic Acid Urine HCG, Qual Bacteria (Wet Prep) 4+ BACTERIA SEEN Trichomonas (Wet Prep) NO TRICHOMONAS SEEN Vaginal WBC 4+ WBCS SEEN Vaginal RBC FEW RBCS SEEN Vaginal Yeast NO YEAST SEEN Chlamydia DNA (PCR) Cancelled DETECTED H N.gonorrhoeae DNA (PCR) Cancelled DETECTED H - Diagnostic Test Radiology reviewed: Reports reviewed Discharge - Discharge Clinical Impression: Hydrosalpinx, Chlamydia, Gonorrhea, PID (acute pelvic inflammatory disease) Ovarian cyst Qualifiers: Laterality: right Qualified Code(s): N83.201 - Unspecified ovarian cyst, right side Condition: Stable Disposition: HOME, SELF-CARE Instructions: Chlamydia ([facility]), Doxycycline ([facility]), Gonorrhea ([facility]), Ovarian Cyst ([facility]), Pelvic Inflammatory Disease ([facility]), Rocephin ([facility]) Additional Instructions: Return immediately for any new or worsening symptoms Followup with your primary care provider, call tomorrow to make a followup appointment Call the DIRECTOR OF UNDERGRADUATE ADMISSIONS office tomorrow, you should get an appointment for this week per Dr. Gurrola's instruction Have your partner seek treatment for gonorrhea and chlamydia Prescriptions: Doxycycline Hyclate 100 mg PO BID #28 capsule Metronidazole [Flagyl 500 mg Tablet] 500 mg PO BID #14 tablet Naproxen [Naprosyn 250 Nmg Tablet] 1 tab PO BID #14 tablet Referrals: [facility] [Provider Group] - Follow up in 3-5 days
[2018-02-25 15:02] LABS: ABSOLUTE EOSINOPHILS # (AUTO) 0.1 10^3/uL (0.0-0.6); ABSOLUTE LYMPHOCYTES (AUTO) 1.2 10^3/uL (0.5-4.7); ABSOLUTE MONOCYTES (AUTO) 0.6 10^3/uL (0.1-1.4); ABSOLUTE NEUT (AUTO) 4.9 10^3/uL (1.7-8.2); BASOPHILS % (AUTO) 0.4 % (0-2); EOSINOPHILS % (AUTO) 1.3 % (0-6); HEMATOCRIT 41.4 % (36.0-47.0); HEMOGLOBIN 14.6 g/dL (12.0-15.5); MEAN CORPUSCULAR HGB CONC 35.3 g/dL (32.0-36.0); MEAN CORPUSCULAR VOLUME 85 fl (80-97); MONOCYTES % (AUTO) 8.8 % (3-13); PLATELET COUNT 215 10^3/uL (150-450); RED BLOOD COUNT 4.88 10^6/uL (3.72-5.28); RED CELL DISTRIBUTION WIDTH 13.4 % (11.5-14.0); SEGMENTED NEUTROPHILS % (AUTO) 71.5 % (42-78); TOTAL CELLS COUNTED % (AUTO) 100 %; WHITE BLOOD COUNT 6.8 10^3/uL (4.0-10.5)
[2018-02-25 15:05] LABS: APPEARANCE,URINE CLEAR; BILIRUBIN,URINE NEGATIVE (NEGATIVE); COLOR,URINE YELLOW; GLUCOSE, URINE NEGATIVE (NEGATIVE); KETONES,URINE NEGATIVE (NEGATIVE); LEUKOCYTE ESTERASE,URINE NEGATIVE (NEGATIVE); NITRITE,URINE NEGATIVE (NEGATIVE); PROTEIN,URINE 30 mg/dL (NEGATIVE); URINE SPECIFIC GRAVITY 1.021; UROBILINOGEN,URINE NEGATIVE mg/dL (<2.0)
[2018-02-25 15:22] LABS: ALANINE AMINOTRANSFERASE 33 U/L (9-52); ALBUMIN 4.1 g/dL (3.5-5.0); ALKALINE PHOSPHATASE 101 U/L (38-126); ANION GAP 12 (5-19); ASPARTATE AMINO TRANSFERASE 28 U/L (14-36); BILIRUBIN,DIRECT 0.2 mg/dL (0.0-0.4); BILIRUBIN,TOTAL 0.5 mg/dL (0.2-1.3); BLOOD UREA NITROGEN 9 mg/dL (7-20); CALCIUM 9.1 mg/dL (8.4-10.2); CARBON DIOXIDE 29 mmol/L (22-30); CHLORIDE 103 mmol/L (98-107); GLUCOSE 91 mg/dL (75-110); LIPASE 23.7 U/L (23-300); POTASSIUM 3.7 mmol/L (3.6-5.0); SODIUM 143.7 mmol/L (137-145); TOTAL PROTEIN 7.3 g/dL (6.3-8.2)
--- NOTE | 2018-02-25 15:51 | RADIOLOGY REPORT (SQ) ---
EXAM DESCRIPTION: U/S NON OB PEL TV W/DOPPLER COMPLETED DATE/TIME: 02/25/2018 3:35 pm REASON FOR STUDY: pelvic pain, discharge, hx mirena COMPARISON: None. TECHNIQUE: Dynamic and static grayscale images acquired of the pelvis via transvaginal approach and recorded on PACS. Additional selected color Doppler and spectral images recorded. LIMITATIONS: None. FINDINGS: UTERUS: Contour normal. No mass. ENDOMETRIAL STRIPE: IUD in expected locations. CERVIX: No nabothian cysts. RIGHT OVARY AND DOPPLER: 4.8 cm cyst. Normal vascular flow. LEFT OVARY AND DOPPLER: The ovaries not clearly identified. There is a dilated tubular structure in the left adnexal region which is likely a hydrosalpinx. FREE FLUID: Small amount of free fluid OTHER: No other significant finding. MEASUREMENTS: UTERUS: 11.4 cm ENDOMETRIAL STRIPE: 2 to 3 mm RIGHT OVARY: 5.6 cm LEFT OVARY: Not visualized. IMPRESSION: IUD in expected location. Likely left hydrosalpinx. 5 cm right ovarian cyst. TECHNICAL DOCUMENTATION: JOB ID: [id number]- All Rights Reserved Rev-08/11 Reading location - IP/workstation name: [email or web address]
[2018-02-25] MEDS ORDERED: CEFTRIAXONE INJ 250 MG VIAL IV ONE (16:26)
[2018-02-25 16:45] LABS: BACTERIA (WET MOUNT) 4+ BACTERIA SEEN; RBCS (WET MOUNT) FEW RBCS SEEN; T.VAGINALIS (WET MOUNT) NO TRICHOMONAS SEEN; WBCS (WET MOUNT) 4+ WBCS SEEN; YEAST (WET MOUNT) NO YEAST SEEN
[2018-02-25] MEDS ORDERED: DOXYCYCLINE HYCLATE 100 MG TABLET PO ONE (17:19)
[2018-02-25 17:22] LABS: CHLAM PCR DETECTED (NOT DETECT); GON PCR DETECTED (NOT DETECT)
[2018-02-25 18:19] VITALS: BP 131/98
== END 2018-02-25 18:19 | disposition home or self-care (01) ==
LOC: ER 13:45
DX: N70.11 Chronic salpingitis (principal); N73.9 Female pelvic inflammatory disease, unspecified; A74.9 Chlamydial infection, unspecified; A54.9 Gonococcal infection, unspecified; N83.201 Unspecified ovarian cyst, right side; R10.9 Unspecified abdominal pain; R10.2 Pelvic and perineal pain; Z88.6 Allergy status to analgesic agent; Z88.0 Allergy status to penicillin
CPT/HCPCS: 36415; 87210; 83690; 85025; 81025; 80053; 81001; 87491; 87591; 76830; 93976; J3490; J7030; J0696; 96361; 96365; 99284